=== PATIENT | male | born 1970 | race Two or more races ===

== ENCOUNTER 2018-10-01 15:21 | Inpatient (IN) | payer MEDICAID ==
[~2018-10-01] VITALS: Ht 170.2 cm; Wt 59.4 kg
[2018-10-01] MEDS ORDERED: METFORMIN HCL500 M1 ORAL (15:24)
--- NOTE | 2018-10-01 15:25 | NUR ---
ED Nurse Note: Patient brought in by AMY BULLARD 826 from [facility]/o right leg pain for 2 days. patient denies any recent injury, patient reports he has been walking a lot lately. Right leg appears to be swollen compared to left leg. patient's right foot appears red and swollen as well patient reports history of diabetes and takes metformin.
--- NOTE | 2018-10-01 16:20 | NUR ---
ED Nurse Note: blood sent to lab
[2018-10-01 16:36] LABS: BASOPHILS % (AUTO) 0.9 % (0.0-2.0); EOSINOPHILS % (AUTO) 2.8 % (0.0-3.0); HEMATOCRIT 26.3 % (42.0-52.0); HEMOGLOBIN 8.7 G/DL (14.2-18.0); LYMPHOCYTES % (AUTO) 11.8 % (20.0-45.0); MEAN CORPUSCULAR VOLUME 76 FL (80-99); MONOCYTES % (AUTO) 6.3 % (1.0-10.0); NEUTROPHILS % (AUTO) 78.2 % (45.0-75.0); PLATELET COUNT 328 K/UL (150-450); RED BLOOD COUNT 3.45 M/UL (4.70-6.10); RED CELL DISTRIBUTION WIDTH 12.7 % (11.6-14.8); WHITE BLOOD COUNT 11.7 K/UL (4.8-10.8)
[2018-10-01 16:48] LABS: ANION GAP 7 mmol/L (5-15); BLOOD UREA NITROGEN 25 mg/dL (7-18); CALCIUM 8.8 MG/DL (8.5-10.1); CARBON DIOXIDE 28 MMOL/L (21-32); CHLORIDE 100 MMOL/L (98-107); POTASSIUM 3.9 MMOL/L (3.5-5.1); SODIUM 135 MMOL/L (136-145)
--- NOTE | 2018-10-01 16:48 | NUR ---
ED Nurse Note: venous duplex done at bedside.
[2018-10-01 16:53] LABS: ALANINE AMINOTRANSFERASE 32 U/L (12-78); ALBUMIN 2.3 G/DL (3.4-5.0); ALBUMIN/GLOBULIN RATIO 0.5 (1.0-2.7); ALKALINE PHOSPHATASE 49 U/L (46-116); ASPARTATE AMINO TRANSFERASE 21 U/L (15-37); BILIRUBIN,TOTAL 0.2 MG/DL (0.2-1.0)
[2018-10-01] MEDS ORDERED: Piperacillin/Tazobactam 3.375 GM in NS 110 ML IVPB ONE (17:15)
--- NOTE | 2018-10-01 17:31 | NUR ---
ED Nurse Note: UA sent to lab
--- NOTE | 2018-10-01 17:55 | NUR ---
ED Nurse Note: crackers and water provided to the patient as Mikki SCHULTZ ok with it
[2018-10-01 17:59] VITALS: BP 130/65
[2018-10-01 18:46] LABS: APPEARANCE,URINE CLEAR; BILIRUBIN, URINE NEGATIVE (NEGATIVE); GLUCOSE, URINE (UA) 4+ (NEGATIVE); KETONES,URINE NEGATIVE (NEGATIVE); LEUKOCYTE ESTERASE ,URINE NEGATIVE (NEGATIVE); NITRITE,URINE NEGATIVE (NEGATIVE); PH,URINE 5 (4.5-8.0); PROTEIN,URINE 1+ (NEGATIVE); UROBILINOGEN,URINE NORMAL MG/DL (0.0-1.0)
[2018-10-01 18:47] LABS: COLOR,URINE YELLOW
--- NOTE | 2018-10-01 19:11 | NUR ---
HAND-OFF: Report given to Tigist Roberson RN.
--- NOTE | 2018-10-01 19:19 | Emergency Room Report ---
History of Present Illness General Chief Complaint: Lower Extremity Injury Source: EMS Present Illness HPI 47-year-old male presents to the emergency department complaining of 6 out of 10 in severity pain, swelling and tenderness to the right foot and leg times one day. Patient reports that he had an acute onset of his symptoms after doing a a lot of walking. Patient reports history of diabetes he states he has several open wounds. Patient states that he takes metformin daily. He denies fevers or chills he reports pain in the leg is exacerbated upon weight-bearing or palpation of the foot. Pt. denies recent prolonged travel or immobilization. Pt. reports he smokes methamphetamine. He Denies trauma or fall. Denies numbness tingling or loss of sensation or gross motor movements of the extremities, incontinence of bowel or bladder. Denies CP, Palpitations, LOC, AMS , dizziness, Changes in Vision, weakness or a sudden severe headache. Allergies: Coded Allergies: No Known Allergies (Unverified , 10/01/18) Patient History Past Medical History: see triage record Past Surgical History: none Pertinent Family History: none Reviewed Nursing Documentation: PMH: Agreed; PSxH: Agreed Nursing Documentation-PMH Past Medical History: No History, Except For Hx Diabetes: Yes Review of Systems All Other Systems: negative except mentioned in HPI Physical Exam Vital Signs Date Time Temp Pulse Resp B/P (MAP) Pulse Ox O2 Delivery O2 Flow Rate FiO2 10/01/18 15:17 106 18 100 Room Air 10/01/18 17:59 98.6 130/65 Sp02 EP Interpretation: reviewed, normal General Appearance: no apparent distress, alert, GCS 15, non-toxic, thin, other - Disheveled, Chronically Ill Head: normocephalic, atraumatic Eyes: bilateral eye normal inspection, bilateral eye PERRL ENT: normal ENT inspection, hearing grossly normal, normal voice Neck: full range of motion, no bony tend Respiratory: chest non-tender, lungs clear, normal breath sounds, no respiratory distress, no wheezing Cardiovascular #1: normal peripheral pulses, edema - right foot and leg Cardiovascular #2: 2+ dorsalis pedis (R), 2+ dorsalis pedis (L) Gastrointestinal: non tender, soft, non-distended Rectal: deferred Genitourinary: normal inspection Musculoskeletal: swelling - right calf, foot, and toes. greatest in the toes. , other - left great and second toe are surgically absent Neurologic: alert, oriented x3, responsive, motor strength/tone normal, sensory intact, speech normal, grossly normal Psychiatric: judgement/insight normal Skin: no rash, warm/dry, well hydrated, other - Swelling of the right calf, right foot and significantly to the right toes. Several open decubitus ulcers noted on the dorsal of the toes as well as on the plantar aspect of the right foot. Left great toe and second toe are surgically absent. There is also a large abrasion/ulceration wound that appears chronic to the left anterior escobar. Medical Decision Making PA Attestation Dr. long is my supervising Physician whom patient management has been discussed with. Diagnostic Impression: Primary Impression: Cellulitis in diabetic foot ER Course 47-year-old male presents to the emergency department complaining of 6 out of 10 in severity pain, swelling and tenderness to the right foot and leg times one day. Patient reports that he had an acute onset of his symptoms after doing a a lot of walking. Patient reports history of diabetes he states he has several open wounds. Patient states that he takes metformin daily. He denies fevers or chills he reports pain in the leg is exacerbated upon weight-bearing or palpation of the foot. Pt. denies recent prolonged travel or immobilization. Pt. reports he smokes methamphetamine. He Denies trauma or fall. Denies numbness tingling or loss of sensation or gross motor movements of the extremities, incontinence of bowel or bladder. Denies CP, Palpitations, LOC, AMS , dizziness, Changes in Vision, weakness or a sudden severe headache. Ddx considered but are not limited to Cellulitis, DVT, varicose vein, PAD, Venous insufficiency Vital signs: initially mildly tachycardic however remaining vital signs are WNL , pt. is afebrile H&PE are most consistent with cellulitis versus DVT of the right lower extremity- --this patient is homeless and appears disheveled ORDERS: CMP: glucose 166 CBC with Diff, : 11.5 wbc's ---hb 8.7, hct 26.3 (anemic) PT/PTT: unremarkable -Lactic Acid: 1.5 -LE duplex U/s to R/O dvt.---NEGATIVE FOR DVT ED INTERVENTIONS: -IV Zosyn - IV Vanco DISPOSITION: at this time pt. will be admitted to Dr. Kraft for Cellulitis in Diabetic homeless pt. Dr. Kraft agreed to admit the pt. and to continue pt. care management. Labs Test 10/01/18 16:10 10/01/18 17:28 White Blood Count 11.7 K/UL (4.8-10.8) Red Blood Count 3.45 M/UL (4.70-6.10) Hemoglobin 8.7 G/DL (14.2-18.0) Hematocrit 26.3 % (42.0-52.0) Mean Corpuscular Volume 76 FL (80-99) Mean Corpuscular Hemoglobin 25.2 PG (27.0-31.0) Mean Corpuscular Hemoglobin Concent 33.0 G/DL (32.0-36.0) Red Cell Distribution Width 12.7 % (11.6-14.8) Platelet Count 328 K/UL (150-450) Mean Platelet Volume 4.0 FL (6.5-10.1) Neutrophils (%) (Auto) 78.2 % (45.0-75.0) Lymphocytes (%) (Auto) 11.8 % (20.0-45.0) Monocytes (%) (Auto) 6.3 % (1.0-10.0) Eosinophils (%) (Auto) 2.8 % (0.0-3.0) Basophils (%) (Auto) 0.9 % (0.0-2.0) Prothrombin Time 10.4 SEC (9.30-11.50) Prothromb Time International Ratio 1.0 (0.9-1.1) Activated Partial Thromboplast Time 36 SEC (23-33) Sodium Level 135 MMOL/L (136-145) Potassium Level 3.9 MMOL/L (3.5-5.1) Chloride Level 100 MMOL/L (98-107) Carbon Dioxide Level 28 MMOL/L (21-32) Anion Gap 7 mmol/L (5-15) Blood Urea Nitrogen 25 mg/dL (7-18) Creatinine 1.0 MG/DL (0.55-1.30) Estimat Glomerular Filtration Rate > 60 mL/min (>60) Glucose Level 166 MG/DL (74-106) Lactic Acid Level 1.50 mmol/L (0.4-2.0) Calcium Level 8.8 MG/DL (8.5-10.1) Total Bilirubin 0.2 MG/DL (0.2-1.0) Aspartate Amino Transf (AST/SGOT) 21 U/L (15-37) Alanine Aminotransferase (ALT/SGPT) 32 U/L (12-78) Alkaline Phosphatase 49 U/L (46-116) Total Protein 7.2 G/DL (6.4-8.2) Albumin 2.3 G/DL (3.4-5.0) Globulin 4.9 g/dL Albumin/Globulin Ratio 0.5 (1.0-2.7) Urine Color Yellow Urine Appearance Clear Urine pH 5 (4.5-8.0) Urine Specific [place] 1.010 (1.005-1.035) Urine Protein 1+ (NEGATIVE) Urine Glucose (UA) 4+ (NEGATIVE) Urine Ketones Negative (NEGATIVE) Urine Blood Negative (NEGATIVE) Urine Nitrite Negative (NEGATIVE) Urine Bilirubin Negative (NEGATIVE) Urine Urobilinogen Normal MG/DL (0.0-1.0) Urine Leukocyte Esterase Negative (NEGATIVE) Urine RBC 0-2 /HPF (0 - 0) Urine WBC 2-4 /HPF (0 - 0) Urine Squamous Epithelial Cells None /LPF (NONE/OCC) Urine Bacteria None /HPF (NONE) CT/MRI/US Diagnostic Results CT/MRI/US Diagnostic Results : Imaging Test Ordered: Venous Duplex US Impression Negative for DVT. Multiple Lymph nodes noted. Last Vital Signs Date Time Temp Pulse Resp B/P (MAP) Pulse Ox O2 Delivery O2 Flow Rate FiO2 10/01/18 17:59 98.6 98 19 130/65 100 Room Air Status: unchanged Disposition: ADMITTED INPATIENT Condition: Serious Referrals: NON PHYSICIAN (PCP) Mikki Stern October 01, 2018 19:19
[2018-10-01] MEDS ORDERED: Vancomycin 1 GM in NS 275 ML IVPB ONE (19:45)
[2018-10-01 21:47] VITALS: BP 134/68
--- NOTE | 2018-10-01 22:10 | NUR ---
ER Nurse Note: Report given to Monisha, RN in [place] for continuity of care. Pt a&ox4, VSS, no signs of distress. All orders completed per ERMD orders. All safety measures met; all belongings taken with pt.
--- NOTE | 2018-10-01 22:15 | NUR ---
NURSE NOTES: RECEIVED REPORT FROM RODRI HEALY RN. PT WAS TRANSFERRED TO THE UNIT ON A GURNEY. AWAKE, AAOX4. NO ACUTE DISTRESS NOTED. REDNESS AND SWELLING NOTED ON RIGHT FOOT. IV ON LEFT AC 20G IS INTACT AND PATENT. RECEIVED ADMISSION ORDERS FROM . BED IS LOCKED AT THE LOWEST POSITION, BED ALARMS ACTIVE, SIDE RAILS UP X2, AND CALL LIGHT IS WITHIN REACH. WILL CONTINUE TO MONITOR.
[2018-10-01] MEDS: Hydromorphone 0.5mg/0.5ml inj IVP PRN (23:30)
[2018-10-02] VITALS: BP 122/57
[2018-10-02] MEDS: Piperacillin/Tazobactam 3.375 GM in NS 110 ML IVPB SCH ×4 (00:25→18:29)
[2018-10-02 04:00] VITALS: BP 122/55
[2018-10-02] MEDS: Vancomycin 500 MG in NS 110 ML IV SCH ×4 (05:23→21:06)
[2018-10-02] MEDS: NovoLOG Insulin Flexpen SUBQ SCH ×4 (06:09→20:56)
--- NOTE | 2018-10-02 07:35 | NUR ---
HAND-OFF: Report given to SCOOTER PRATT. Pt is in stable condition, sitter at bedside. No acute distress noted. Addendum: 10/02/18 at 0809 by Monisha Weller RN DISREGARD. INCORRECT PT.
--- NOTE | 2018-10-02 07:36 | NUR ---
NURSE NOTES: Report given to SCOOTER RYAN. Pt is in stable condition. No acute distress noted.
--- NOTE | 2018-10-02 07:59 | NUR ---
NURSE NOTES: Patient alert x4, on room air, no sing of distress and shortness of breath; IV Left AC Zosyn running; urinal within reach; bed at lowest position, side rails up x2, breaks engaged; call light within reach; will keep monitoring.
[2018-10-02 08:00] VITALS: BP 117/55
[2018-10-02] MEDS: metFORMIN 500mg tab ORAL SCH ×2 (08:31→18:28)
--- NOTE | 2018-10-02 08:37 | NUR ---
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
--- NOTE | 2018-10-02 08:59 | Diagnostic Imaging Report ---
Indication: Right lower extremity pain and swelling. Technique: Duplex Doppler imaging performed from the common femoral vein to the popliteal vein. FINDINGS: Normal compressibility demonstrated from the common femoral vein to the popliteal vein. Respiratory phasicity and good augmentation demonstrated on waveform analysis. There is no evidence of thrombosis. IMPRESSION: No evidence of deep venous thrombosis within the lower extremity.
--- NOTE | 2018-10-02 10:00 | History and Physical Report ---
DATE OF ADMISSION: 10/01/2018 HISTORY OF PRESENT ILLNESS: This is a 47-year-old male, who is a very poor historian. He came to the hospital with pain and swelling of his right foot. He reported that he is a long-standing diabetic, but does not take medications on a regular basis. He supposedly on metformin in the past. 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 The patient stated that the pain has been worse for the last few days. The patient reports consuming methamphetamine. ALLERGIES: None. PAST MEDICAL HISTORY: Diabetes mellitus. PREVIOUS SURGERIES: Left amputation of toes x2. FAMILY HISTORY: Noncontributory. SOCIAL HISTORY: Apparently homeless. PHYSICAL EXAMINATION: GENERAL: Reveals a 47-year-old male. HEENT: Unremarkable. LUNGS: Clear breath sounds bilaterally. ABDOMEN: Soft. EXTREMITIES: There is no edema. The patient has normal peripheral pulses. He has amputation of the left great and second toe. Right foot shows swelling and tenderness. There are several open decubitus on the dorsum of the toes as well as plantar aspect of the right foot. There is also an abrasion on the left . NEUROLOGIC: Nonfocal. LABORATORY DATA: The patient's lab testing shows white count 11,000, hemoglobin 8.7. Sodium 135, glucose 166. Urinalysis is negative. Coags are normal. Microbiology so far is negative. Imaging studies none. IMPRESSION: 1. Diabetic foot ulcer. 2. Homelessness. 3. Diabetes mellitus. DISCUSSION: Admitted to the hospital. At this time, I will continue metformin, initiate insulin sliding scale, IV fluids, IV vancomycin and Zosyn. We will consult Podiatry. We will follow carefully. Sidney Kraft M.D. DR: RAINER JOB#: [id number] CC:
[2018-10-02 12:00] VITALS: BP 112/55
--- NOTE | 2018-10-02 12:00 | NUR ---
NURSE NOTES: Vancomycin and Zosyn schedule for 1200; I called pharmacy and I was told to hung Zosyn first and Vancomycin to follow. Zosyn is running now.
--- NOTE | 2018-10-02 14:27 | NUR ---
*--* INSURANCE *-* CLINICALS AND REVIEWS HAVE BEEN FAXED TO: NAVA: NANCI P:[phone] *[id number] F: [phone] (FAX CLINICALS)
--- NOTE | 2018-10-02 14:40 | NUR ---
HOMELESS COORDINATOR spoke with patient and he is alert and oriented. Patient states he has a a contact number, ([phone]. Patient states he needs a wheelchair but was not at his bedside. Patient states he is chronically homeless and would like resources for shelters. Patient states he has been homeless for two years and has become homeless due to drug use. Patient has been using drugs for two years. Patient does not have a contact center consultant and states he does not want to bother anyone. Patient states he receives $800 in SSI a month. Patient states he uses meth and is trying to get clean and would like some resources for substance abuse. Patient also states he is hearing voices but does not talk any medication for it. Patient states he would like resources for mental health. Patient states he will be returning to his previous living condition and would like bus tokens upon discharge. Patient has weather appropriate clothing. Patient continues to require medical intervention. Will continue to monitor and assist as needed. Addendum: 10/02/18 at 1610 by SHERRON DALLAS CM HC Scheduled a follow up appointment at [facility], Sunday October 14, 2018 @ 1:00pm. [address] [place] [address]
--- NOTE | 2018-10-02 15:14 | NUR ---
Social Service Note SW met with patient to assess for homelessness. Patient is alert, oriented, verbally responsive in Polish (decline Italian translation). Patient has been homeless for several years. Patient contributes his homelessness to his frequent drug use and not following through with scheduled appointment. Patient states he smokes meth a few times a week. He last smoked 3 days ago. Patient states he is not receptive to drug treatment as he has been on multiple wait list for serves. Patient states due to his lack of insurance ([facility]) and financial support ([employer]) he is subject to limited availability. SW discussed community access centers such as [address] [place] [address],[phone] and [facility] Substance Abuse Hotline [phone]. Patient was receptive to resources however states he probably will not follow through. SW left a message for insurance [facility] [phone] to discussed available covered benefits. Patient states he has utilized shelters but primarily states in the park located around [facility]. Patient currently indicating that this is the location he will return to upon discharge. Patient states he was diagnosed with schizophrenia. Patient currently not receiving mental health support. Patient denies SI/HI and denies audio/visual hallucinations. Mental health resources to be provided. Patient's medical provider is [address] [place] [address], . ELOY discussed with homeless coordinator. Will continue to monitor. Addendum: 10/02/18 at 1608 by MARY LIPSCOMB Recommend PT eval. Emergency contact Narayan Muir [phone].
--- NOTE | 2018-10-02 19:32 | NUR ---
HAND-OFF: Report given to SCOOTER Weller. I endorsed SCOOTER Weller that Homeless patient discharge planning checklist, which is on patint's file.
--- NOTE | 2018-10-02 19:35 | NUR ---
NURSE NOTES: RECEIVED PT FROM SCOOTER RYAN. RECEIVED REPORT ABOUT HOMELESS DC CHECKLIST. PT WAS AWAKE, AGITATED, THREW TABLE AND FOOD ON THE FLOOR, AND USED INAPPROPRIATE LANGUAGE. SECURITY SUCCESSFULLY DEESCALATED THE SITUATION. PT IS AAOX4, ON ROOM AIR, UNLABORED BREATHING, DENIES PAIN AT THE MOMENT. L AC 20G IV IS INTACT AND PATENT. SWELLING NOTED ON THE RIGHT FOOT, OPEN TO AIR. BED IS LOCKED AT THE LOWEST POSITION, BED ALARMS ACTIVE, SIDE RAILS UP X2 AND CALL LIGHT IS WITHIN REACH. WILL CONTINUE TO MONITOR.
--- NOTE | 2018-10-02 20:52 | NUR ---
NURSE NOTES: PT APPEARED VERY AGITATED. REFUSED TO BE TOUCH. REFUSED VITAL SIGNS, ACCUCHECK, AND NOVOLOG. USED INAPPROPRIATE LANGUAGE TOWARDS RN AND CLIENT MANAGER LARGE LAW. PT STATES THAT HE WANTS TO BE LEAVE ALONE. WILL CONTINUE TO MONITOR.
--- NOTE | 2018-10-02 22:00 | NUR ---
NURSE NOTES: PATIENT CONTINUES TO BEND HIS LEFT ARM, OBSTRUCTING THE IV IN THE AC, PREVENTING MEDICATION ADMINISTRATION. EDUCATED PT ABOUT KEEPING HIS ARM STRAIGHT, BUT PT IS NONCOMPLIANCE. OFFERED TO START A NEW IV IN A DIFFERENT LOCATION BUT PT REFUSED. WILL CONTINUE TO MONITOR.
--- NOTE | 2018-10-03 | NUR ---
NURSE NOTES: PT REFUSED MIDNIGHT VITALS, CHARGE NURSE MADE AWARE. WILL CONTINUE TO MONITOR.
[2018-10-03] MEDS: Vancomycin 500 MG in NS 110 ML IV SCH ×3 (00:10→12:28)
[2018-10-03] MEDS: Piperacillin/Tazobactam 3.375 GM in NS 110 ML IVPB SCH ×6 (01:32→21:17)
[2018-10-03] MEDS: NovoLOG Insulin Flexpen SUBQ SCH ×4 (06:18→21:38)
--- NOTE | 2018-10-03 07:54 | NUR ---
NURSE NOTES: received report from Monisha,RN. patient in bed. alert. verbally responsive. no respiratory distress noted. c/o discomfort on rt foot. offered pain medication but refused. IV on LAC running ATB. cooperative procedure at this time. bed in the lowest position . call light within reach. alarm on . will continue to monitor.
--- NOTE | 2018-10-03 07:56 | NUR ---
HAND-OFF: Report given to SCOOTER BASS.
[2018-10-03 08:00] VITALS: BP 124/64
[2018-10-03] MEDS: metFORMIN 500mg tab ORAL SCH ×2 (08:28→17:12)
--- NOTE | 2018-10-03 10:10 | NUR ---
P.T NOTE: P.T EVALUATION COMPLETED. PATIENT IS INDEPENDENT WITH BED MOBILITY , TRANSFERS AND GAIT DESPITE ANTALGIA DUE TO PAIN ON THE FOOT: PATIENT INSTRUCTED ON PROPER AND SAFE USE OF CANE TO MINIMIZE ANTALGIA AND FACILITATE GAIT STABILITY: PATIENT RETURNED GOOD DEMONSTRATION. NO FURTHER P.T FOLLOW UP NEEDED AT THIS TIME. D/C P.T SERVICES. THANK YOU FOR THIS REFERRAL. Addendum: 10/03/18 at 1011 by CHERYL BERRY PT Amended: Links added.
--- NOTE | 2018-10-03 10:42 | Pulmonology Progress Note ---
Assessment/Plan Assessment/Plan IMPRESSION: 1. Diabetic foot ulcer. 2. Homelessness. 3. Diabetes mellitus. DISCUSSION: Continue metformin, initiate insulin sliding scale, IV fluids, IV vancomycin and Zosyn. I will consult Podiatry. I will follow carefully. Subjective Interval Events: none new Constitutional: Reports: no symptoms HEENT: Repors: no symptoms Respiratory: Reports: no symptoms Gastrointestinal/Abdominal: Reports: no symptoms Allergies: Coded Allergies: No Known Allergies (Unverified , 10/01/18) Objective Last 24 Hour Vital Signs Date Time Temp Pulse Resp B/P (MAP) Pulse Ox O2 Delivery O2 Flow Rate FiO2 10/03/18 08:00 98.6 18 124/64 (84) 98 10/02/18 12:00 97.0 76 16 112/55 (74) 98 Intake and Output 10/02/18 10/03/18 19:00 07:00 Intake Total 1334.0 ml 258.0 ml Balance 1334.0 ml 258.0 ml Intake Oral 1040 ml IV Total 294.0 ml 258.0 ml # Voids 3 General Appearance: no acute distress HEENT: normocephalic Respiratory/Chest: chest wall non-tender Cardiovascular: normal peripheral pulses, normal rate Abdomen: normal bowel sounds Microbiology Date/Time Source Procedure Growth Status 10/01/18 21:58 Rectum Received Laboratory Tests 10/03/18 02:50: Vancomycin Level Trough 14.1H Current Medications Medications (Trade) Dose Ordered Sig/Alissa Route PRN Reason Start Time Stop Time Status Last Admin Dose Admin Dextrose (Dextrose 50%) 25 ml Q30M PRN IV Hypoglycemia 10/01/18 22:45 10/31/18 22:44 Dextrose (Dextrose 50%) 50 ml Q30M PRN IV Hypoglycemia 10/01/18 22:45 10/31/18 22:44 Hydromorphone HCl (Dilaudid) 0.5 mg Q4H PRN IVP For Pain 10/01/18 23:15 10/08/18 23:14 10/01/18 23:30 Insulin Aspart (NovoLOG) BEFORE MEALS AND HS SUBQ 10/02/18 06:30 11/01/18 06:29 10/02/18 16:48 Metformin HCl (Glucophage) 500 mg TWICE A DAY ORAL 10/02/18 09:00 11/01/18 08:59 10/02/18 18:28 Piperacillin Sod/ Tazobactam Sod 3.375 gm/Sodium Chloride 110 ml @ 27.5 mls/hr Q6HR IVPB 10/02/18 00:00 10/06/18 23:59 10/03/18 01:32 Vancomycin HCl (Vanco rx to dose) 1 ea DAILY PRN MISC Per rx protocol 10/01/18 22:45 10/31/18 22:44 Vancomycin HCl 500 mg/Sodium Chloride 110 ml @ 74 mls/hr Q8H IV 10/03/18 08:00 10/08/18 07:59 10/03/18 08:26 Sidney Kraft MD October 03, 2018 10:42
[2018-10-03 12:00] VITALS: BP 124/69
--- NOTE | 2018-10-03 12:33 | NUR ---
NURSE NOTES: left for MRI on Rt foot. IV on LAC intact. patient stable.
--- NOTE | 2018-10-03 12:37 | NUR ---
ADVERTISING DIRECTORRAIL SWITCHMAN SI:CELLULITIS VS: BP 112/55, P 76, T 97.0, RR 16, SpO2 98 NO LABS DRAWN TODAY IS:NOVOLOG SUBQ VANCOMYCIN 110ml IV ZOSYN 110ml IVPB METFORMIN 500mg MED/SURG STATUS
--- NOTE | 2018-10-03 13:51 | Diagnostic Imaging Report ---
Indication: Cellulitis ulceration osteomyelitis Technique: Right forefoot imaging utilizing multiplanar T1 fast spin-echo, proton and T2 fast spin-echo with fat saturation, and STIR. Comparison: None Findings: There is no plain film correlation. Extensive abnormal bone marrow signal characterized by low T1 and high T2 signal within the head of the third metatarsal, proximal middle and distal phalange consistent with acute osteomyelitis. Adjacent skin ulceration along the dorsum of the toe noted with extensive subcutaneous edema indicative of cellulitis. There is a joint effusion at the third MTP joint likely infected. There is extensive amount of fluid surrounding the third proximal phalange involving both the second and third interspace likely periosteal or adjacent abscess. The adjacent second and the adjacent fourth proximal phalanges as well as the remainder of the osseous structures exhibit normal signal. There is some mild T2 hyperintense signal involving the metatarsal tarsal joints which may be degenerative in nature. IMPRESSION: Acute osteomyelitis involving the head of the third metatarsal and phalanges. Moderate somewhat encapsulated appearing fluid surrounding the third proximal phalange consistent adjacent abscess. Cellulitis and ulceration noted as described above.
[2018-10-03] MEDS: Hydromorphone 0.5mg/0.5ml inj IVP PRN ×2 (13:57→23:41)
--- NOTE | 2018-10-03 14:04 | NUR ---
*--* INSURANCE *-* UPDATED CLINICALS AND REVIEWS HAVE BEEN FAXED TO: NAVA: NANCI P:[phone] *[id number] F: [phone] (FAX CLINICALS)
--- NOTE | 2018-10-03 14:50 | NUR ---
NURSE NOTES: notified dr. syed patton/podiatry regarding MRI on rt foot result. MD will schedule for amputation surgery tomorrow. Dr. Syed yoder inform the surgery to the patient. informed consent and further order will be f/u. NPO midnight for surgery. got a clearance from for the surgery.
[2018-10-03 16:00] VITALS: BP 121/66
[2018-10-03] MEDS ORDERED: Vancomycin 750mg/NS 275ml IVPB SCH ×2 (17:00)
[2018-10-03] MEDS ORDERED: NS IVPB SCH (17:00)
[2018-10-03] MEDS ORDERED: VANCOMYCIN IVPB SCH (17:00)
--- NOTE | 2018-10-03 19:13 | NUR ---
HAND-OFF: Report given to SCOOTER Herrera.
--- NOTE | 2018-10-03 19:48 | NUR ---
NURSE NOTES: Received patient in bed, awake, alert, oriented, no acute distress noted, VSS, afebrile. Call light is within reach, bed is in low position, locked and alarm is on. Will continue to assess for comfort and safety.
--- NOTE | 2018-10-03 22:15 | Consultation ---
DATE OF CONSULTATION: 10/03/2018 CONSULTING PHYSICIAN: Sidney Kraft M.D. REASON FOR CONSULTATION: Diabetic foot ulcer, right foot. HISTORY OF PRESENT ILLNESS: This is a 47-year-old diabetic patient, who has presented to [facility] with diabetic foot infection to the right foot. The patient states that he actually has history of amputation to the left foot and noticed a swelling involving the right third toe. The patient states that the swelling and infection started a few months ago and it started getting worse to the point that he decided to come to the hospital for evaluation and treatment. The patient denies taking care of it. He is a poor historian and he demonstrates to be noncompliant. The patient denies fever, chills, nausea, or vomiting. White count is slightly elevated to 11,000. PAST MEDICAL HISTORY: Diabetic neuropathy, amputation of left toes, diabetic foot infection, and cellulitis of the right foot. PHYSICAL EXAMINATION: VASCULAR: Dorsalis pedis and posterior tibial artery are palpable. Capillary filling time is noted to be 3 seconds. Edema is noted to the left foot dorsal aspect. NEUROLOGICAL: Sharp and dull proprioception, protected threshold, and vibratory sensation noted to be diminished consistent with peripheral neuropathy. MUSCULOSKELETAL: The patient is mobile. There is status post amputation stump left first and second toes noted to be healed. No drainage, discharge, or opening noted. Contracted digits 3 through 5 of the left foot, 2 through 5 of the right foot at the PIPJ consistent with hammertoe deformity. Muscle strength is noted to be 5/5 in all 4 quadrants. No decrease in range of motion is noted. DERMATOLOGICAL: Attention was directed to the right fifth toe were enlarged swollen third toe noted consistent with clinical osteo. There is dorsal ulceration with medial and lateral ulceration to the right third toe with drainage and discharge. Foul smell is present. There is positive cellulitis proximal to the metatarsophalangeal joint. The adjacent second and fourth toes are also noted to be swollen, not as large as the third toe. superficial ulceration is noted sub R 2nd met head. no probing or undermining noted. to subq level. ASSESSMENT AND PLAN: Diabetic foot infection with clinical osteo of the right third toe. Order was written for application of Betadine to the right fifth toe. MRI is pending to examine the excessive amount of osteomyelitis present. The patient would benefit from amputation of the right fifth toe pending MRI results. The patient will be followed. Anam Berry D.P.M DR: CIRILO JOB#: [id number] CC: OXANA
[2018-10-04] VITALS (10 sets, daily range): BP systolic 99–137; BP diastolic 57–79
[2018-10-04] MEDS ORDERED: Piperacillin/Tazobactam 3.375 GM in NS 110 ML IVPB SCH (03:00)
[2018-10-04] MEDS: NovoLOG Insulin Flexpen SUBQ SCH ×4 (06:23→21:13)
--- NOTE | 2018-10-04 06:53 | NUR ---
HAND-OFF: Report given to Vanessa HELMS. Addendum: 10/04/18 at 0714 by YEFRI MCCULLOUGH RN Report is given to Yulissa HELMS
--- NOTE | 2018-10-04 07:32 | NUR ---
NURSE NOTES: received report from SCOOTER Herrera.patient in bed. alert. verbally responsive. no respiratory distress noted. no c/o pain at this time. IV on LAC 20 running ATB. bed in the lowest position. call light within reach. will continue to monitor.
[2018-10-04 07:33] LABS: BASOPHILS % (AUTO) 1.4 % (0.0-2.0); EOSINOPHILS % (AUTO) 7.9 % (0.0-3.0); HEMATOCRIT 26.4 % (42.0-52.0); HEMOGLOBIN 8.5 G/DL (14.2-18.0); LYMPHOCYTES % (AUTO) 18.3 % (20.0-45.0); MEAN CORPUSCULAR VOLUME 78 FL (80-99); MONOCYTES % (AUTO) 6.6 % (1.0-10.0); NEUTROPHILS % (AUTO) 65.9 % (45.0-75.0); PLATELET COUNT 365 K/UL (150-450); RED BLOOD COUNT 3.39 M/UL (4.70-6.10); RED CELL DISTRIBUTION WIDTH 13.7 % (11.6-14.8); WHITE BLOOD COUNT 6.5 K/UL (4.8-10.8)
[2018-10-04 08:07] LABS: ANION GAP 6 mmol/L (5-15); BLOOD UREA NITROGEN 17 mg/dL (7-18); CALCIUM 8.6 MG/DL (8.5-10.1); CARBON DIOXIDE 29 MMOL/L (21-32); CHLORIDE 101 MMOL/L (98-107); CREATININE 0.9 MG/DL (0.55-1.30); POTASSIUM 4.4 MMOL/L (3.5-5.1); SODIUM 136 MMOL/L (136-145)
--- NOTE | 2018-10-04 08:10 | Pulmonology Progress Note ---
Assessment/Plan Assessment/Plan IMPRESSION: 1. Diabetic foot ulcer with osteo 2. Homelessness. 3. Diabetes mellitus. DISCUSSION: Continue metformin, insulin sliding scale, IV fluids, IV vancomycin and Zosyn. Seen by Podiatry. I will follow carefully. Will need toe amputation Subjective Interval Events: None new; seen by podiary Constitutional: Reports: no symptoms HEENT: Repors: no symptoms Respiratory: Reports: no symptoms Cardiovascular: Reports: no symptoms Gastrointestinal/Abdominal: Reports: no symptoms Genitourinary: Reports: no symptoms Allergies: Coded Allergies: No Known Allergies (Unverified , 10/01/18) Objective Last 24 Hour Vital Signs Date Time Temp Pulse Resp B/P (MAP) Pulse Ox O2 Delivery O2 Flow Rate FiO2 10/04/18 04:00 97.4 68 18 107/66 (80) 10/04/18 00:15 101.0 10/04/18 00:00 101.2 83 19 127/61 (83) 10/03/18 16:00 98.2 81 18 121/66 (84) 97 10/03/18 12:00 98.0 75 18 124/69 (87) 97 Intake and Output 10/03/18 10/04/18 18:59 06:59 Intake Total 921.333 ml Output Total 1000 ml 600 ml Balance -78.667 ml -600 ml Intake Oral 480 ml IV Total 441.333 ml Output Urine Total 1000 ml 600 ml General Appearance: no acute distress HEENT: normocephalic Respiratory/Chest: chest wall non-tender, lungs clear Cardiovascular: normal peripheral pulses, normal rate Abdomen: normal bowel sounds Microbiology Date/Time Source Procedure Growth Status 10/01/18 21:58 Rectum - Final NO CARBAPENEM-RESISTANT ENTEROBACTERI... Complete 10/01/18 21:58 Rectum VRE Culture - Final NO VANCOMYCIN RESISTANT ENTEROCOCCUS ... Complete Laboratory Tests 10/04/18 05:51: White Blood Count 6.5, Red Blood Count 3.39L, Hemoglobin 8.5L, Hematocrit 26.4L , Mean Corpuscular Volume 78L, Mean Corpuscular Hemoglobin 25.0L, Mean Corpuscular Hemoglobin Concent 32.0, Red Cell Distribution Width 13.7, Platelet Count 365, Mean Platelet Volume 4.2L, Neutrophils (%) (Auto) 65.9, Lymphocytes ( %) (Auto) 18.3L, Monocytes (%) (Auto) 6.6, Eosinophils (%) (Auto) 7.9H, Basophils (%) (Auto) 1.4, Sodium Level [Pending], Potassium Level [Pending], Chloride Level [Pending], Carbon Dioxide Level [Pending], Blood Urea Nitrogen [ Pending], Creatinine [Pending], Estimat Glomerular Filtration Rate [Pending], Glucose Level [Pending], Calcium Level [Pending] Current Medications Medications (Trade) Dose Ordered Sig/Alissa Route PRN Reason Start Time Stop Time Status Last Admin Dose Admin Acetaminophen (Tylenol) 650 mg Q6H PRN ORAL Mild Pain/Temp > 100.5 10/03/18 23:45 11/02/18 23:44 10/03/18 23:44 Dextrose (Dextrose 50%) 25 ml Q30M PRN IV Hypoglycemia 10/01/18 22:45 10/31/18 22:44 Dextrose (Dextrose 50%) 50 ml Q30M PRN IV Hypoglycemia 10/01/18 22:45 10/31/18 22:44 Hydromorphone HCl (Dilaudid) 0.5 mg Q4H PRN IVP For Pain 10/01/18 23:15 10/08/18 23:14 10/03/18 23:41 Insulin Aspart (NovoLOG) BEFORE MEALS AND HS SUBQ 10/02/18 06:30 11/01/18 06:29 10/04/18 06:23 Metformin HCl (Glucophage) 500 mg TWICE A DAY ORAL 10/02/18 09:00 11/01/18 08:59 10/03/18 17:12 Piperacillin Sod/ Tazobactam Sod 3.375 gm/Sodium Chloride 110 ml @ 27.5 mls/hr Q6H IVPB 10/04/18 03:00 10/11/18 02:59 10/04/18 03:27 Vancomycin HCl (Vanco rx to dose) 1 ea DAILY PRN MISC Per rx protocol 10/01/18 22:45 10/31/18 22:44 Vancomycin HCl 750 mg/Sodium Chloride 275 ml @ 183.333 mls/hr Q12H IVPB 10/04/18 07:00 10/09/18 06:59 Sidney Kraft MD October 04, 2018 08:10
--- NOTE | 2018-10-04 08:10 | NUR ---
NURSE NOTES: Dr. Wyatt called to the patient,explained the surgery and procedures. patient verbalized understood and agree to sign on the consent. patient is NPO since last midnight.
--- NOTE | 2018-10-04 08:17 | NUR ---
NURSE NOTES: patient has been NPO since midnight for surgery. diabetic patient. called Dr. gann and received order of NS 1000 75/hr for hydration. order noted and carried out.
--- NOTE | 2018-10-04 08:30 | NUR ---
NURSE NOTES: witnessed patient signed on consent for surgery.
[2018-10-04] MEDS: metFORMIN 500mg tab ORAL SCH ×2 (09:00→18:41)
[2018-10-04] MEDS: Vancomycin 750mg/NS 275ml IVPB SCH ×4 (09:26→21:05)
--- NOTE | 2018-10-04 11:00 | NUR ---
NURSE NOTES: patient got mad about NPO. pulled out IV. threw things away. screamed and verbally abused to staffs. called security for safety. explained the patient the benefits of surgery. patient agreed to stay and get surgery as ordered. insert new IV on LFA 22g. intact. will continue to monitor.
--- NOTE | 2018-10-04 11:01 | NUR ---
*--* INSURANCE *-* UPDATED CLINICALS AND REVIEWS HAVE BEEN FAXED TO: NAVA: NANCI P:[phone] *[phone] F: [phone] (FAX CLINICALS)
[2018-10-04] MEDS ORDERED: Midazolam 2mg/2ml Inj ONE (11:35)
[2018-10-04] MEDS ORDERED: fentaNYL 100 mcg/2 mL IV ONE ×2 (11:35→14:27)
[2018-10-04] MEDS ORDERED: Propofol 200mg/20ml IV ONE (11:35)
--- NOTE | 2018-10-04 11:46 | Anethesia Preoperative Eval ---
Anesthesia Pre-op PMH/ROS General Date of Evaluation: October 04, 2018 Time of Evaluation: 11:45 Anesthesiologist: Mayte Thomason CRNA ASA Score: ASA 3 Mallampati Score Class I : Soft palate, uvula, fauces, pillars visible Class II: Soft palate, uvula, fauces visible Class III: Soft palate, base of uvula visible Class IV: Only hard plate visible Mallampati Classification: Class II Surgeon: Kristi Diagnosis: Cellulitis, RIGHT foot ulcer Surgical Procedure: RIGHT toe amputation Anesthesia History: none Social History: smoking, drug use - methamphetamines Family History: no anesthesia problems Allergies: Coded Allergies: No Known Allergies (Unverified , 10/01/18) Medications: see eMAR Patient NPO?: Yes NPO Date: October 04, 2018 NPO Time: 00:00 Past Medical History Cardiovascular: Denies: HTN, CAD, PA, valve dz, arrhythmia, other Pulmonary: Denies: asthma, COPD, MECHE, other Gastrointestinal/Genitourinary: Denies: GERD, CRI, ESRD, other Neurologic/Psychiatric: Denies: dementia, CVA, depression/anxiety, TIA, other Endocrine: Reports: DM - Type 2, noncompliant; Denies: hypothyroidism, steroids, other HEENT: Denies: cataract (L), cataract (R), glaucoma, [place] (L), [place] (R), other Hematology/Immune: Reports: anemia; Denies: DVT, bleeding disorder, other Musculoskeletal/Integumentary: Reports: other - RIGHT foot decubitus ulcer, cellulitis, 3rd toe osteomyelitis; Denies: OA, RA, DJD, DDD, edema Other: other - homeless PMH Narrative: as noted above PSxH Narrative: LEFT toe amputation x 2 Anesthesia Pre-op Phys. Exam Physician Exam Last Vital Signs Date Time Temp Pulse Resp B/P (MAP) Pulse Ox O2 Delivery O2 Flow Rate FiO2 10/04/18 08:00 98.0 76 18 137/71 (93) 97 10/02/18 09:59 Room Air Constitutional: NAD Neurologic: other - alert and oriented Cardiovascular: RRR Respiratory: CTA Gastrointestinal: S/NT/ND Airway Exam Mallampati Score: Class II MO: full Neck: FROM TMD: > 3 FB ROM: full Teeth: broken Dentures: no upper, no lower Anesthesia Pre-op A/P Labs Hematology Test 10/04/18 05:51 White Blood Count 6.5 K/UL (4.8-10.8) Red Blood Count 3.39 M/UL (4.70-6.10) L Hemoglobin 8.5 G/DL (14.2-18.0) L Hematocrit 26.4 % (42.0-52.0) L Mean Corpuscular Volume 78 FL (80-99) L Mean Corpuscular Hemoglobin 25.0 PG (27.0-31.0) L Mean Corpuscular Hemoglobin Concent 32.0 G/DL (32.0-36.0) Red Cell Distribution Width 13.7 % (11.6-14.8) Platelet Count 365 K/UL (150-450) Mean Platelet Volume 4.2 FL (6.5-10.1) L Neutrophils (%) (Auto) 65.9 % (45.0-75.0) Lymphocytes (%) (Auto) 18.3 % (20.0-45.0) L Monocytes (%) (Auto) 6.6 % (1.0-10.0) Eosinophils (%) (Auto) 7.9 % (0.0-3.0) H Basophils (%) (Auto) 1.4 % (0.0-2.0) Chemistry Test 10/04/18 05:51 Sodium Level 136 MMOL/L (136-145) Potassium Level 4.4 MMOL/L (3.5-5.1) Chloride Level 101 MMOL/L (98-107) Carbon Dioxide Level 29 MMOL/L (21-32) Anion Gap 6 mmol/L (5-15) Blood Urea Nitrogen 17 mg/dL (7-18) Creatinine 0.9 MG/DL (0.55-1.30) Estimat Glomerular Filtration Rate > 60 mL/min (>60) Glucose Level 118 MG/DL (74-106) H Calcium Level 8.6 MG/DL (8.5-10.1) Accucheck 127 @ 11:30 Studies Pre-op Studies: other - MRI of RIGHT foot, (+) 3rd toes osteomyelitis Risk Assessment & Plan Assessment: ASA 2, ok to proceed Plan: MAC Status Change Before Surgery: No Pre-Antibiotics Drug: On antibiotics on floor Mayte Thomason CRNA October 04, 2018 11:46
--- NOTE | 2018-10-04 11:58 | NUR ---
RD ASSESSMENT & RECOMMENDATIONS SEE CARE ACTIVITY FOR COMPLETE ASSESSMENT DAILY ESTIMATED NEEDS: Needs based on Wounds, DM 68.7kg 25-35 kcals/kg 5415-1710 total kcals 1.25-1.5 g protein/kg 86-103 g total protein 25-30 mL/kg 8178-8573 total fluid mLs NUTRITION DIAGNOSIS: Increased pro needs R/t wound healing as evidenced by pt w/ R toe ulcer and OM, pending toe amputation. CURRENT DIET: NPO for procedure, was CCHO LOW PO DIET RECOMMENDATIONS: CCHO LOW + HIGH PROT SNACKS IN B/W MEALS ADDITIONAL RECOMMENDATIONS: 1) Obtain a calibrated bed scale wt 2) Wound care: add FLORINA BID + MVI x1 + VIT C 250mg BID 3) High pro snacks in b/w meals (1 carb each)
--- NOTE | 2018-10-04 12:45 | NUR ---
NURSE NOTES: patient left unit for surgery at 1330 with stable condition. IV intact. consent signed. pre op check list done.
[2018-10-04] MEDS ORDERED: NeoSporin Gu Irrig 1ml Amp IRRIG ONE (13:31)
[2018-10-04] MEDS ORDERED: Bacitracin 50000 Units Vial ONE (13:31)
[2018-10-04] MEDS ORDERED: Bacitracin Oint 15gm Tube TOPIC ONE (13:31)
[2018-10-04] MEDS ORDERED: Bupivacaine 0.5% Inj 30 ml vial INJ ONE (13:43)
[2018-10-04] MEDS ORDERED: Lidocaine 1% Plain 30 ml INJ ONE (13:43)
[2018-10-04] MEDS ORDERED: LORazepam Inj 2mg/ml 1ml IV PRN (13:45)
[2018-10-04] MEDS ORDERED: Hydromorphone 0.5mg/0.5ml inj IVP PRN (13:45)
--- NOTE | 2018-10-04 13:57 | Pre-Procedure Note/Attestation ---
Pre-Procedure Note/Attestation Complete Prior to Procedure Planned Procedure: right Indications for Procedure Pre-Operative Diagnosis: Dm foot Ulcer R 3rd toe with underlying Osteomyelitis of R 3rd toe and distal 3rd Metatarsal Attestation I attest that I discussed the nature of the procedure; its benefits; risks and complications; and alternatives (and the risks and benefits of such alternatives ), prior to the procedure, with the patient (or the patient's legal disability representative). I attest that, if there was a reasonable possibility of needing a blood transfusion, the patient (or the patient's legal disability representative) was given the [facility] standardized written summary, pursuant to the Sean Ciara Blood Safety Act ([place] Health and Safety Code # 1645, as amended). I attest that I re-evaluated the patient just prior to the surgery and that there has been no change in the patient's H&P, except as documented below: Anam Berry DPM October 04, 2018 13:57
[2018-10-04] MEDS ORDERED: NS Irrig 1000ml ONE (14:00)
[2018-10-04] MEDS ORDERED: Lidocaine 1% MPF 10mg/ml 5ml ONE (14:00)
[2018-10-04] MEDS ORDERED: Sterile Water Irrig 1000ml IRRIG ONE (14:00)
--- NOTE | 2018-10-04 15:10 | Post Operative Note (Narrative ---
Progress Note Post-Op Note R 3trd toe Dm infection with underlying osteomyelitises of the toe and 3rd metatarsal head. Patient tolerated the anesthesia and procedure well patient was transferred to recovery with VSS intact. Patient will be taken back to floor once stable and resume all preop orders. dressing to remain dry and intact Anam Berry DPM October 04, 2018 15:10
--- NOTE | 2018-10-04 15:10 | Immediate Post-Op Evaluation ---
Immediate Post-Op Evalulation Immediate Post-Op Evalulation Procedure: RIGHT 3rd toe amputation Date of Evaluation: October 04, 2018 Time of Evaluation: 15:04 IV Fluids: 0.9 NS 300 ml Estimated Blood Loss: minimal Blood Pressure Systolic: 99 Blood Pressure Diastolic: 59 Pulse Rate: 66 Respiratory Rate: 16 O2 Sat by Pulse Oximetry: 100 Temperature (Fahrenheit): 98.1 Pain Score (1-10): 0 Nausea: No Vomiting: No Complications none Patient Status: awake, reacts, patent Hydration Status: adequate Drug: on antibiotics on floor, see Mayte Sharp CRNA October 04, 2018 15:10
--- NOTE | 2018-10-04 16:26 | NUR ---
NURSE NOTES: patient was transferred from OR via hospital bed with stable condition. alert. verbally responsive. no respiratory distress noted. Rt toe amputated with dressing intact. shoe in place. elevated rt leg with pillow. IV on LFA running fluid. will continue to monitor patient condition.
[2018-10-04] MEDS: Zoysn 3.37gm in NS 100ML IVPB SCH (16:34)
--- NOTE | 2018-10-04 16:34 | NUR ---
HOMELESS COORDINATOR Homeless Checklist available if required. Please check patients chart. Please provide medical resource list for patient follow-up appointment in chart. Homeless Checklist and Medical resource list are both available in yellow homeless binder as well. Patient continues to require medical intervention. Will continue to monitor and assist as needed.
--- NOTE | 2018-10-04 17:20 | NUR ---
RESERVATION AGENTMANAGER INTEGRATED SI: CELLULITIS VS: BP 101/57, P 64, T 97.6, RR 16, SpO2 100 RBC 3.39, H&H 8.5/26.4, IS: NS x1L IV VANCOMYCIN 110ml IV ZOSYN 110ml IVPB MED/SURG STATUS
--- NOTE | 2018-10-04 19:14 | NUR ---
HAND-OFF: Report given to SCOOTER Evans.
--- NOTE | 2018-10-04 19:47 | NUR ---
NURSE NOTES: Pt received in bed at lowest position, able to make needs known, call light within reach, asking for a sandwhich, foot is wrapped up with shoe on it, no c/o pain or signs of distress at the moment, will continue to monitor.
[2018-10-05] MEDS: Zoysn 3.37gm in NS 100ML IVPB SCH ×3 (00:37→18:03)
--- NOTE | 2018-10-05 05:00 | Operative Note - Dictated ---
DATE OF OPERATION: 10/04/2018 PREOPERATIVE DIAGNOSES: 1. Diabetic foot ulcer, right third toe with osteomyelitis. 2. Cellulitis. 3. Osteomyelitis of third metatarsal head. POSTOPERATIVE DIAGNOSES: 1. Diabetic foot ulcer, right third toe with osteomyelitis. 2. Cellulitis. 3. Osteomyelitis of third metatarsal head. NAME OF OPERATION: Amputation of right third toe with a biopsy of third metatarsal head. SURGEON: Anam Berry D.P.M. ANESTHESIA: Local with MAC. HEMOSTASIS: Pneumatic ankle tourniquet. ESTIMATED BLOOD LOSS: Minimal. PATHOLOGY: Right third toe was enlarged, swollen. Proximal phalanx and distal phalanx noted to be degenerative. Upon entrance of the metatarsophalangeal joint, 10 mL of purulent matter was noted consistent with septic joint. Degenerative changes was noted to the metatarsal head. PROCEDURE IN DETAIL: Under mild sedation, the patient was brought into the operating room table and placed on the operating room table in the supine position. A pneumatic ankle tourniquet was then placed about the patient's right ankle. Following intravenous sedation, local anesthesia of 7 mL of 1:1 mixture of 1% lidocaine plain and 0.5% Marcaine plain was administered to the proximal aspect of the right third metatarsophalangeal joint. The foot was then scrubbed, prepped, and draped the usual aseptic manner. An Esmarch bandage was then utilized to exsanguinate the patient's right foot and pneumatic ankle tourniquet was inflated to 250 mmHg. Utilizing a 10 surgical blade, two elliptical incisions were made around the third toe. The incision was deepened through subcutaneous tissue to metatarsophalangeal joint area and excessive purulent matter was noted coming from the metatarsophalangeal joint area. The incision was deepened through capsule and the toe was disarticulated and removed from the surgical site. All purulent matter was cleaned out. The wound was then examined for sinus tracts probing and undermining tunneling and no other purulent matter was identified. The wound was then cultured for gram-positive and negative, aerobic, anaerobic, and fungus. At this time, utilizing a 15-blade, the metatarsal head was freed from its soft tissue attachment. Utilizing a bone saw, the distal aspect of the metatarsal neck was then excised and was passed for pathology. The wound was then flushed with copious amounts of normal saline mixed with bacitracin. This subcutaneous tissue was then reapproximated utilizing 3-0 Vicryl and the skin was then reapproximated utilizing 3-0 nylon in mattress suture technique. Upon completion of the procedure, the incision was dressed with Betadine, covered with 4 x 4 and Kerlix. The pneumatic ankle tourniquet was deflated. Prompt hyperemia was noted to digits of 1, 2 and 4 of the right foot. A Coban was placed on top of the foot. The patient tolerated the procedure and anesthesia well and was transferred to the recovery room with vital signs stable and vascular status intact to digits 1 through 5 of the right foot. Following a period of postoperative monitoring, the patient will be discharged back to the floor to his room. Order was given to resume all preoperative medicines and resume diet. Order was written to keep dressing dry and intact. The patient will be followed. Dhara CabreraPDonnyM DR: Emily JOB#: [id number] CC: OXANA
[2018-10-05] MEDS: NovoLOG Insulin Flexpen SUBQ SCH ×4 (06:01→20:16)
--- NOTE | 2018-10-05 07:30 | NUR ---
HAND-OFF: Report given to SCOOTER Beltran.
--- NOTE | 2018-10-05 07:35 | NUR ---
NURSE NOTES: Received patient in bed, awake, not in respiratory/cardiac distress. Denies any pain or discomfort patient is calm @ this time. Dressing and Stockinette on right foot intact, no bleeding on dressing. IV intact,no s/s of infiltration. Bed is in lowest position and locked. Call light and personnel items within reach. Will continue plan of care.
[2018-10-05 08:00] VITALS: BP 132/88
[2018-10-05] MEDS: Vancomycin 750mg/NS 275ml IVPB SCH ×6 (08:50→23:50)
[2018-10-05] MEDS: metFORMIN 500mg tab ORAL SCH ×2 (08:50→17:21)
--- NOTE | 2018-10-05 08:55 | NUR ---
NURSE NOTES: RN spoke to the pharmacist and relayed VT level of 7.2 to continue with Vancomycin 750mg for now.
[2018-10-05 12:00] VITALS: BP 131/73
[2018-10-05] MEDS ORDERED: Vancomycin 500mg/D5W 110ml IVPB SCH ×2 (15:00)
--- NOTE | 2018-10-05 15:15 | Pulmonology Progress Note ---
Assessment/Plan Assessment/Plan IMPRESSION: 1. Diabetic foot ulcer with osteo 2. Homelessness. 3. Diabetes mellitus. DISCUSSION: Continue metformin, insulin sliding scale, IV fluids, IV vancomycin and Zosyn. Seen by Podiatry. I will follow carefully. POD #1 Subjective Interval Events: POD #1 surgery on R foot Constitutional: Reports: no symptoms HEENT: Repors: no symptoms Respiratory: Reports: no symptoms Cardiovascular: Reports: no symptoms Gastrointestinal/Abdominal: Reports: no symptoms Genitourinary: Reports: no symptoms Neurologic: Reports: no symptoms Allergies: Coded Allergies: No Known Allergies (Unverified , 10/01/18) Objective Last 24 Hour Vital Signs Date Time Temp Pulse Resp B/P (MAP) Pulse Ox O2 Delivery O2 Flow Rate FiO2 10/05/18 12:00 98.8 83 16 131/73 (92) 99 10/05/18 09:00 Room Air 10/05/18 08:00 98.4 74 17 132/88 (103) 99 10/04/18 21:00 Room Air 10/04/18 20:00 98.2 69 18 134/79 (97) 99 10/04/18 16:00 98.0 80 18 113/67 (82) 100 10/04/18 16:00 97.6 67 18 113/67 100 Nasal Cannula 3 10/04/18 15:45 66 16 114/63 100 Nasal Cannula 3 10/04/18 15:30 64 17 110/63 100 Simple Mask 6 10/04/18 15:15 67 18 110/65 100 Simple Mask 6 Intake and Output 10/04/18 10/05/18 19:00 07:00 Intake Total 1136.666 ml 551.666 ml Output Total 520 ml 550 ml Balance 616.666 ml 1.666 ml Intake Oral 240 ml IV Total 896.666 ml 551.666 ml Output Urine Total 500 ml 550 ml Estimated Blood Loss 20 ml General Appearance: no acute distress HEENT: normocephalic Respiratory/Chest: chest wall non-tender, lungs clear Cardiovascular: normal peripheral pulses, normal rate Abdomen: normal bowel sounds Laboratory Tests 10/05/18 06:00: Vancomycin Level Trough 7.2 Current Medications Medications (Trade) Dose Ordered Sig/Alissa Route PRN Reason Start Time Stop Time Status Last Admin Dose Admin Acetaminophen (Tylenol) 650 mg Q6H PRN ORAL Mild Pain/Temp > 100.5 10/03/18 23:45 11/02/18 23:44 10/03/18 23:44 Dextrose (Dextrose 50%) 25 ml Q30M PRN IV Hypoglycemia 10/01/18 22:45 10/31/18 22:44 Dextrose (Dextrose 50%) 50 ml Q30M PRN IV Hypoglycemia 10/01/18 22:45 10/31/18 22:44 Hydromorphone HCl (Dilaudid) 0.5 mg Q4H PRN IVP For Pain 10/01/18 23:15 10/08/18 23:14 10/03/18 23:41 Insulin Aspart (NovoLOG) BEFORE MEALS AND HS SUBQ 10/02/18 06:30 11/01/18 06:29 10/05/18 12:10 Metformin HCl (Glucophage) 500 mg TWICE A DAY ORAL 10/02/18 09:00 11/01/18 08:59 10/05/18 08:50 Piperacillin Sod/ Tazobactam Sod 3.375 gm/Sodium Chloride 110 ml @ 27.5 mls/hr Q8HR@0000,0800,1600 IVPB 10/04/18 16:00 10/11/18 15:59 10/05/18 10:41 Sodium Chloride 1,000 ml @ 75 mls/hr [id number] IV 10/04/18 08:30 11/03/18 08:29 10/05/18 12:59 Vancomycin HCl (Vanco rx to dose) 1 ea DAILY PRN MISC Per rx protocol 10/01/18 22:45 10/31/18 22:44 Vancomycin HCl 750 mg/Sodium Chloride 275 ml @ 183.333 mls/hr Q8H IVPB 10/05/18 15:00 10/10/18 14:59 Sidney Kraft MD October 05, 2018 15:14
--- NOTE | 2018-10-05 15:39 | NUR ---
CASE MANAGEMENT: REVIEW SI: RIGHT LEG CELLULITIS . RIGHT FOOT ULCER RIGHT TOE AMPUTATION 10/04 T 98.8 HR 83 RR 16 BP 131/73 SAT 99% ROOM AIR IS: VANCO IV Q8HR ZOSYN IV Q8HR NS IVF @75ML/HR METFORMIN PO BID DILAUDID 0.5 IV Q4HR PRN MED/SURG UNIT STATUS DCP: PATIENT REPORTS HOMELESSNESS
[2018-10-05 16:00] VITALS: BP 120/70
[2018-10-05] MEDS ORDERED: NS 500ML ONE (16:54)
[2018-10-05] MEDS ORDERED: Tubing IV Secondary IV ONE (16:54)
--- NOTE | 2018-10-05 18:00 | NUR ---
NURSE NOTES: Dressing on right foot intact and dry, no drainage or blood noted.
--- NOTE | 2018-10-05 19:27 | NUR ---
HAND-OFF: Report given to Cristina.
--- NOTE | 2018-10-05 19:36 | NUR ---
NURSE NOTES: Pt received awake, alert in bed eating a sandwhich, able to make needs known, call light within reach, dressing on rt foot clean and dry, no c/o pain or signs of distress, will continue to monitor.
[2018-10-05 20:00] VITALS: BP 133/68
[2018-10-06] VITALS: BP 120/62
[2018-10-06] MEDS: Zoysn 3.37gm in NS 100ML IVPB SCH ×3 (02:02→17:30)
[2018-10-06] MEDS: Vancomycin 750mg/NS 275ml IVPB SCH ×2 (06:06)
[2018-10-06] MEDS: NovoLOG Insulin Flexpen SUBQ SCH ×4 (06:06→20:14)
[2018-10-06 06:14] LABS: BASOPHILS % (AUTO) 1.3 % (0.0-2.0); EOSINOPHILS % (AUTO) 6.1 % (0.0-3.0); HEMATOCRIT 28.2 % (42.0-52.0); HEMOGLOBIN 9.2 G/DL (14.2-18.0); LYMPHOCYTES % (AUTO) 26.4 % (20.0-45.0); MEAN CORPUSCULAR VOLUME 76 FL (80-99); MONOCYTES % (AUTO) 5.3 % (1.0-10.0); NEUTROPHILS % (AUTO) 60.8 % (45.0-75.0); PLATELET COUNT 354 K/UL (150-450); RED BLOOD COUNT 3.72 M/UL (4.70-6.10); RED CELL DISTRIBUTION WIDTH 12.7 % (11.6-14.8); WHITE BLOOD COUNT 6.6 K/UL (4.8-10.8)
[2018-10-06 06:37] LABS: ANION GAP 4 mmol/L (5-15); BLOOD UREA NITROGEN 17 mg/dL (7-18); CALCIUM 8.6 MG/DL (8.5-10.1); CARBON DIOXIDE 29 MMOL/L (21-32); CHLORIDE 104 MMOL/L (98-107); CREATININE 0.9 MG/DL (0.55-1.30); POTASSIUM 4.5 MMOL/L (3.5-5.1); SODIUM 137 MMOL/L (136-145)
--- NOTE | 2018-10-06 07:45 | NUR ---
HAND-OFF: Report given to SCOOTER Vicente.
[2018-10-06 08:00] VITALS: BP 133/66
--- NOTE | 2018-10-06 08:00 | NUR ---
NURSE NOTES: received pt lying on bed, no complaint of pain or discomfort at this time. right 3rd toe has adaptic and is painted with Betadine. IV access running through LFA access. . Bed locked at the lowest position possible, call light within easy reach, siderails up x2. Will continue to monitor patient and follow up with the plan of care.
[2018-10-06] MEDS: metFORMIN 500mg tab ORAL SCH ×2 (08:56→17:30)
--- NOTE | 2018-10-06 09:56 | Podiatric Progress Note ---
Assessment/Plan Patient Wesly Wheat Jr is a 47 year old male who was admitted on October 01, 2018 at 21:31 with Problems: (1) Cellulitis, toe (2) Diabetes mellitus type 2 with neurological manifestations (3) Foot ulcer due to secondary DM (4) Abscess of toe of right foot Assessment/Plan patient s/p R 3rd amputation healing well Patient can be discharged with local wound care orders and IV abx Patient to be transferred to SNF for post op care. Subjective Allergies: Coded Allergies: No Known Allergies (Unverified , 10/01/18) Subjective Patient s/p R 3rd toe amputation with biopsy of R 3rd met head. healing well WBC has normalized. Patient has no c/o denies f/c/n/v Objective Exam Last 24 Hour Vital Signs Date Time Temp Pulse Resp B/P (MAP) Pulse Ox O2 Delivery O2 Flow Rate FiO2 10/06/18 00:00 98.0 77 18 120/62 (81) 98 10/05/18 21:00 Room Air 10/05/18 20:00 97.9 83 18 133/68 (89) 98 10/05/18 16:00 97.9 83 17 120/70 (87) 100 10/05/18 12:00 98.8 83 16 131/73 (92) 99 Laboratory Tests Test 10/06/18 06:00 White Blood Count 6.6 K/UL (4.8-10.8) Red Blood Count 3.72 M/UL (4.70-6.10) L Hemoglobin 9.2 G/DL (14.2-18.0) L Hematocrit 28.2 % (42.0-52.0) L Mean Corpuscular Volume 76 FL (80-99) L Mean Corpuscular Hemoglobin 24.6 PG (27.0-31.0) L Mean Corpuscular Hemoglobin Concent 32.5 G/DL (32.0-36.0) Red Cell Distribution Width 12.7 % (11.6-14.8) Platelet Count 354 K/UL (150-450) Mean Platelet Volume 3.8 FL (6.5-10.1) L Neutrophils (%) (Auto) 60.8 % (45.0-75.0) Lymphocytes (%) (Auto) 26.4 % (20.0-45.0) Monocytes (%) (Auto) 5.3 % (1.0-10.0) Eosinophils (%) (Auto) 6.1 % (0.0-3.0) H Basophils (%) (Auto) 1.3 % (0.0-2.0) Sodium Level 137 MMOL/L (136-145) Potassium Level 4.5 MMOL/L (3.5-5.1) Chloride Level 104 MMOL/L (98-107) Carbon Dioxide Level 29 MMOL/L (21-32) Anion Gap 4 mmol/L (5-15) L Blood Urea Nitrogen 17 mg/dL (7-18) Creatinine 0.9 MG/DL (0.55-1.30) Estimat Glomerular Filtration Rate > 60 mL/min (>60) Glucose Level 123 MG/DL (74-106) H Calcium Level 8.6 MG/DL (8.5-10.1) Vancomycin Level Trough 12.8 ug/mL (5.0-12.0) H Microbiology Date/Time Source Procedure Growth Status 10/01/18 21:58 Nasal Nares MRSA Culture - Final NO METHICILLIN RESISTANT STAPH AUREUS... Complete 10/04/18 14:30 Toe Right Third Gram Stain - Final Resulted 10/04/18 14:30 Toe Right Third Aerobic Culture Pending Resulted 10/04/18 14:30 Toe Right Third Anaerobic Culture Pending Resulted Dermatological Dermatological Narrative R surgical site is clear from drainage and discharge. sutures are intact. cellulitis is resolving. edema is less Anam Berry DPM October 06, 2018 09:56
--- NOTE | 2018-10-06 10:00 | NUR ---
NURSE NOTES: Dr. Berry seeing pt, asks nurse to apply betadine to R 3rd toe, above already placed adaptic, and dry dressing, secured with tape..
--- NOTE | 2018-10-06 10:04 | Pulmonology Progress Note ---
Assessment/Plan Assessment/Plan IMPRESSION: 1. Diabetic foot ulcer with osteo 2. Homelessness. 3. Diabetes mellitus. DISCUSSION: Continue metformin, insulin sliding scale, IV fluids, IV vancomycin and Zosyn. Seen by Podiatry. I will follow carefully. POD #2 PiCC line Dc plasnning to SNF Subjective Interval Events: Looking and feeling better Constitutional: Reports: no symptoms HEENT: Repors: no symptoms Respiratory: Reports: no symptoms Cardiovascular: Reports: no symptoms Gastrointestinal/Abdominal: Reports: no symptoms Genitourinary: Reports: no symptoms Allergies: Coded Allergies: No Known Allergies (Unverified , 10/01/18) Objective Last 24 Hour Vital Signs Date Time Temp Pulse Resp B/P (MAP) Pulse Ox O2 Delivery O2 Flow Rate FiO2 10/06/18 00:00 98.0 77 18 120/62 (81) 98 10/05/18 21:00 Room Air 10/05/18 20:00 97.9 83 18 133/68 (89) 98 10/05/18 16:00 97.9 83 17 120/70 (87) 100 10/05/18 12:00 98.8 83 16 131/73 (92) 99 Intake and Output 10/05/18 10/06/18 18:59 06:59 Intake Total 2173.333 ml 1791.666 ml Output Total 2830 ml Balance 2173.333 ml -1038.334 ml Intake Oral 960 ml IV Total 1283.333 ml 831.666 ml Other 890 ml Output Urine Total 2830 ml General Appearance: no acute distress HEENT: normocephalic Respiratory/Chest: chest wall non-tender Cardiovascular: normal peripheral pulses, normal rate Abdomen: normal bowel sounds Microbiology Date/Time Source Procedure Growth Status 10/04/18 14:30 Toe Right Third Gram Stain - Final Resulted 10/04/18 14:30 Toe Right Third Aerobic Culture Pending Resulted 10/04/18 14:30 Toe Right Third Anaerobic Culture Pending Resulted Laboratory Tests 10/06/18 06:00: White Blood Count 6.6, Red Blood Count 3.72L, Hemoglobin 9.2L, Hematocrit 28.2L , Mean Corpuscular Volume 76L, Mean Corpuscular Hemoglobin 24.6L, Mean Corpuscular Hemoglobin Concent 32.5, Red Cell Distribution Width 12.7, Platelet Count 354, Mean Platelet Volume 3.8L, Neutrophils (%) (Auto) 60.8, Lymphocytes ( %) (Auto) 26.4, Monocytes (%) (Auto) 5.3, Eosinophils (%) (Auto) 6.1H, Basophils (%) (Auto) 1.3, Sodium Level 137, Potassium Level 4.5, Chloride Level 104, Carbon Dioxide Level 29, Anion Gap 4L, Blood Urea Nitrogen 17, Creatinine 0.9, Estimat Glomerular Filtration Rate > 60, Glucose Level 123H, Calcium Level 8.6, Vancomycin Level Trough 12.8H Current Medications Medications (Trade) Dose Ordered Sig/Alissa Route PRN Reason Start Time Stop Time Status Last Admin Dose Admin Acetaminophen (Tylenol) 650 mg Q6H PRN ORAL Mild Pain/Temp > 100.5 10/03/18 23:45 11/02/18 23:44 10/03/18 23:44 Dextrose (Dextrose 50%) 25 ml Q30M PRN IV Hypoglycemia 10/01/18 22:45 10/31/18 22:44 Dextrose (Dextrose 50%) 50 ml Q30M PRN IV Hypoglycemia 10/01/18 22:45 10/31/18 22:44 Hydromorphone HCl (Dilaudid) 0.5 mg Q4H PRN IVP For Pain 10/01/18 23:15 10/08/18 23:14 10/03/18 23:41 Insulin Aspart (NovoLOG) BEFORE MEALS AND HS SUBQ 10/02/18 06:30 11/01/18 06:29 10/06/18 06:06 Metformin HCl (Glucophage) 500 mg TWICE A DAY ORAL 10/02/18 09:00 11/01/18 08:59 10/06/18 08:56 Piperacillin Sod/ Tazobactam Sod 3.375 gm/Sodium Chloride 110 ml @ 27.5 mls/hr Q8HR@0000,0800,1600 IVPB 10/04/18 16:00 10/11/18 15:59 10/06/18 08:57 Sodium Chloride 1,000 ml @ 75 mls/hr [id number] IV 10/04/18 08:30 11/03/18 08:29 10/06/18 09:11 Vancomycin HCl (Vanco rx to dose) 1 ea DAILY PRN MISC Per rx protocol 10/01/18 22:45 10/31/18 22:44 Vancomycin HCl 1 gm/Dextrose 275 ml @ 183.708 mls/hr Q8H IVPB 10/06/18 15:00 10/11/18 14:59 Sidney Kraft MD October 06, 2018 10:04
[2018-10-06] MEDS ORDERED: Lidocaine 1% Plain 30 ml INJ PRN (10:15)
[2018-10-06] MEDS ORDERED: Heparin1,000 units/500ml Premix(Conc:2 units/ml) IV PRN (10:15)
[2018-10-06 12:00] VITALS: BP 131/72
[2018-10-06] MEDS: Vancomycin 1gm in D5W 275ml IVPB SCH ×2 (15:01→22:48)
--- NOTE | 2018-10-06 15:27 | NUR ---
CASE MANAGEMENT: REVIEW SI: RIGHT LEG CELLULITIS . RIGHT FOOT ULCER w/OSTEO RIGHT TOE AMPUTATION 10/04 T 99.4 HR 77 RR 19 BP 131/72 SAT 98% ROOM AIR H/H 9.2/ 28.2 IS: VANCO IV Q8HR ZOSYN IV Q8HR NS IVF @75ML/HR METFORMIN PO BID DILAUDID 0.5 IV Q4HR PRN MED/SURG UNIT STATUS DCP: PATIENT REPORTS HOMELESSNESS PLAN: PICC PLACEMENT
--- NOTE | 2018-10-06 19:22 | NUR ---
HAND-OFF: Report given to SCOOTER Evans.
--- NOTE | 2018-10-06 19:22 | NUR ---
NURSE NOTES: Pt received awake, standing in the doorway asking for a sandwhich, no signs of distress or c/o pain at the moment, dressing on rt foot was changed this morning and dressing is intact, able to make needs known, will continue to monitor.
[2018-10-06 20:00] VITALS: BP 131/77
[2018-10-06] MEDS: Dyna-Hex 2% Top Sol 2oz TOPIC SCH (20:08)
[2018-10-07] MEDS: Zoysn 3.37gm in NS 100ML IVPB SCH ×3 (00:57→16:21)
[2018-10-07] MEDS: Vancomycin 1gm in D5W 275ml IVPB SCH ×3 (05:48→22:37)
[2018-10-07] MEDS: NovoLOG Insulin Flexpen SUBQ SCH ×4 (05:55→22:32)
--- NOTE | 2018-10-07 07:11 | NUR ---
HAND-OFF: Report given to SCOOTER Angela.
--- NOTE | 2018-10-07 07:21 | NUR ---
NURSE NOTES: received report from SCOOTER Evans. patient in bed. A&Ox4, verbally responsive. no respiratory distress noted. no c/o pain at this time. RT food elevated with pillow. dressing intact. lt foot with scd on. IV on LFA running ATB. bed in the lowest position. call light within reach. will continue to monitor.
[2018-10-07 08:00] VITALS: BP 146/68
[2018-10-07] MEDS: metFORMIN 500mg tab ORAL SCH ×2 (08:23→18:07)
--- NOTE | 2018-10-07 09:58 | Pulmonology Progress Note ---
Assessment/Plan Assessment/Plan IMPRESSION: 1. Diabetic foot ulcer with osteo 2. Homelessness. 3. Diabetes mellitus. DISCUSSION: Continue metformin, insulin sliding scale, IV fluids, IV vancomycin and Zosyn. Seen by Podiatry. I will follow carefully. POD #3 PiCC line ordered Dc planning to SNF Subjective Interval Events: No new events Constitutional: Reports: no symptoms HEENT: Repors: no symptoms Respiratory: Reports: no symptoms Cardiovascular: Reports: no symptoms Gastrointestinal/Abdominal: Reports: no symptoms Genitourinary: Reports: no symptoms Allergies: Coded Allergies: No Known Allergies (Unverified , 10/01/18) Objective Last 24 Hour Vital Signs Date Time Temp Pulse Resp B/P (MAP) Pulse Ox O2 Delivery O2 Flow Rate FiO2 10/07/18 08:00 97.6 71 18 146/68 (94) 100 10/06/18 21:00 Room Air 10/06/18 20:00 97.6 72 18 131/77 (95) 98 10/06/18 12:00 99.4 77 19 131/72 (91) 98 Intake and Output 10/06/18 10/07/18 19:00 07:00 Intake Total 1337.500 ml 642.5 ml Output Total 2000 ml 1050 ml Balance -662.500 ml -407.5 ml Intake Oral 400 ml IV Total 937.500 ml 642.5 ml Output Urine Total 2000 ml 1050 ml # Voids 2 General Appearance: no acute distress HEENT: normocephalic, mucous membranes moist Respiratory/Chest: chest wall non-tender Cardiovascular: normal peripheral pulses, normal rate Abdomen: normal bowel sounds Microbiology Date/Time Source Procedure Growth Status 10/04/18 14:30 Toe Right Third Gram Stain - Final Complete 10/04/18 14:30 Aerobic Culture - Final Staphylococcus Aureus Streptococcus Group C Diphtheroids Complete 10/04/18 14:30 Toe Right Third Anaerobic Culture - Final NO ANAEROBES ISOLATED Complete Current Medications Medications (Trade) Dose Ordered Sig/Alissa Route PRN Reason Start Time Stop Time Status Last Admin Dose Admin Acetaminophen (Tylenol) 650 mg Q6H PRN ORAL Mild Pain/Temp > 100.5 10/03/18 23:45 11/02/18 23:44 10/03/18 23:44 Chlorhexidine Gluconate (Vero-Hex 2%) 1 applic DAILY@1999 TOPIC 10/06/18 20:00 11/05/18 19:59 10/06/18 20:08 Dextrose (Dextrose 50%) 25 ml Q30M PRN IV Hypoglycemia 10/01/18 22:45 10/31/18 22:44 Dextrose (Dextrose 50%) 50 ml Q30M PRN IV Hypoglycemia 10/01/18 22:45 10/31/18 22:44 Heparin Sodium/ Sodium Chloride (Heparin 1000 units/500ml Premix) 1,000 unit ONCE PRN IV PICC LINE 10/06/18 10:15 10/08/18 10:14 Hydromorphone HCl (Dilaudid) 0.5 mg Q4H PRN IVP For Pain 10/01/18 23:15 10/08/18 23:14 10/03/18 23:41 Insulin Aspart (NovoLOG) BEFORE MEALS AND HS SUBQ 10/02/18 06:30 11/01/18 06:29 10/07/18 05:55 Lidocaine HCl (Xylocaine 1% 30ml) 30 ml ONCE PRN INJ PICC LINE 10/06/18 10:15 10/08/18 10:14 Metformin HCl (Glucophage) 500 mg TWICE A DAY ORAL 10/02/18 09:00 11/01/18 08:59 10/07/18 08:23 Piperacillin Sod/ Tazobactam Sod 3.375 gm/Sodium Chloride 110 ml @ 27.5 mls/hr Q8HR@0000,0800,1600 IVPB 10/04/18 16:00 10/11/18 15:59 10/07/18 08:24 Sodium Chloride 1,000 ml @ 75 mls/hr [id number] IV 10/04/18 08:30 11/03/18 08:29 10/07/18 02:11 Vancomycin HCl (Vanco rx to dose) 1 ea DAILY PRN MISC Per rx protocol 10/01/18 22:45 10/31/18 22:44 Vancomycin HCl 1 gm/Dextrose 275 ml @ 183.708 mls/hr Q8H IVPB 10/06/18 15:00 10/11/18 14:59 10/07/18 05:48 Sidney Kraft MD October 07, 2018 09:58
[2018-10-07 12:00] VITALS: BP 130/69
--- NOTE | 2018-10-07 14:41 | NUR ---
NURSE NOTES: vanco trough 16.7 at 1430. spoke to pharmacy and ok to hang same dosage vanco 1gm/275ml as ordered.
[2018-10-07 16:00] VITALS: BP 127/76
--- NOTE | 2018-10-07 16:57 | NUR ---
MASS SPECTROMETRY SPECIALISTRIM TECHNICIAN SI:RIGHT LEG CELLULITIS . RIGHT FOOT ULCER w/OSTEO VS: BP 146/68, P 71, T 98.5, RR 19, SpO2 100 NO LABS TODAY IS:NOVOLOG SUBQ VANCOMYCIN 275ml IVPB ZOSYN 110ml IVPB METFORMIN 500mg NS x1L IV MED/SURG STATUS
--- NOTE | 2018-10-07 19:27 | NUR ---
HAND-OFF: Report given to SCOOTER Ross.
--- NOTE | 2018-10-07 19:28 | NUR ---
NURSE NOTES: Received report from SCOOTER Duenas. Patient in is bed, awake. A&Ox4, verbally responsive, appropriate, on room air. No s/sx of respiratory distress noted. No c/o pain at this time. RT foot elevated with pillow. dressing intact. Left foot with scd on. IV on LFA, patent, asymptomatic. Bed in the lowest position. call light within reach. will continue to monitor.
[2018-10-07 20:00] VITALS: BP 127/60
[2018-10-07] MEDS: Dyna-Hex 2% Top Sol 2oz TOPIC SCH (20:00)
[2018-10-08] VITALS: BP 120/68
[2018-10-08] MEDS: Zoysn 3.37gm in NS 100ML IVPB SCH ×3 (00:08→18:28)
[2018-10-08 04:00] VITALS: BP 128/70
[2018-10-08] MEDS: Vancomycin 1gm in D5W 275ml IVPB SCH ×2 (05:55→16:11)
[2018-10-08] MEDS: NovoLOG Insulin Flexpen SUBQ SCH ×4 (06:28→21:54)
--- NOTE | 2018-10-08 07:25 | NUR ---
HAND-OFF: Report given to SCOOTER Avila.
--- NOTE | 2018-10-08 07:30 | NUR ---
NURSE NOTES: Received patient sitting up in a chair, alert and oriented x4. not in respiratory/cardiac distress. Denies pain or discomfort. Dressing on right foot intact, no bleeding or discharge or foul smell noted. Patient is ambulatory, SCD's on left leg off. Patient is wearing his own clothes @ this time. encouraged the patient to change clothes to hospital gown but patient refused @ this time. Will follow up and will continue plan of care.
[2018-10-08 08:00] VITALS: BP 114/69
[2018-10-08] MEDS: metFORMIN 500mg tab ORAL SCH ×2 (08:30→17:34)
--- NOTE | 2018-10-08 09:43 | Pulmonology Progress Note ---
Assessment/Plan Assessment/Plan IMPRESSION: 1. Diabetic foot ulcer with osteo 2. Homelessness. 3. Diabetes mellitus. DISCUSSION: Continue metformin, insulin sliding scale, IV fluids, IV vancomycin and Zosyn. Seen by Podiatry. I will follow carefully. POD #4 PiCC line ordered; for placement today Dc planning to SNF Subjective Interval Events: For PICC today Constitutional: Reports: no symptoms HEENT: Repors: no symptoms Respiratory: Reports: no symptoms Cardiovascular: Reports: no symptoms Gastrointestinal/Abdominal: Reports: no symptoms Allergies: Coded Allergies: No Known Allergies (Unverified , 10/01/18) Objective Last 24 Hour Vital Signs Date Time Temp Pulse Resp B/P (MAP) Pulse Ox O2 Delivery O2 Flow Rate FiO2 10/08/18 09:00 Room Air 10/08/18 08:00 98.1 76 18 114/69 (84) 99 10/08/18 04:00 98.6 69 18 128/70 (89) 99 10/08/18 00:00 98.6 72 18 120/68 (85) 99 10/07/18 21:00 Room Air 10/07/18 20:00 98.2 74 18 127/60 (82) 99 10/07/18 16:00 98.0 67 19 127/76 (93) 98 10/07/18 12:00 98.5 79 19 130/69 (89) 99 Intake and Output 10/07/18 10/08/18 19:00 07:00 Intake Total 2482.766 ml Output Total 3000 ml Balance 2482.766 ml -3000 ml IV Total 1282.766 ml Other 1200 ml Output Urine Total 3000 ml General Appearance: no acute distress HEENT: normocephalic Respiratory/Chest: chest wall non-tender, lungs clear Cardiovascular: normal peripheral pulses, normal rate Abdomen: normal bowel sounds, soft, non tender Laboratory Tests 10/07/18 13:55: Vancomycin Level Trough 16.7H Current Medications Medications (Trade) Dose Ordered Sig/Alissa Route PRN Reason Start Time Stop Time Status Last Admin Dose Admin Acetaminophen (Tylenol) 650 mg Q6H PRN ORAL Mild Pain/Temp > 100.5 10/03/18 23:45 11/02/18 23:44 10/03/18 23:44 Chlorhexidine Gluconate (Vero-Hex 2%) 1 applic DAILY@1999 TOPIC 10/06/18 20:00 11/05/18 19:59 10/06/18 20:08 Dextrose (Dextrose 50%) 25 ml Q30M PRN IV Hypoglycemia 10/01/18 22:45 10/31/18 22:44 Dextrose (Dextrose 50%) 50 ml Q30M PRN IV Hypoglycemia 10/01/18 22:45 10/31/18 22:44 Heparin Sodium/ Sodium Chloride (Heparin 1000 units/500ml Premix) 1,000 unit ONCE PRN IV PICC LINE 10/06/18 10:15 10/08/18 10:14 Hydromorphone HCl (Dilaudid) 0.5 mg Q4H PRN IVP For Pain 10/01/18 23:15 10/08/18 23:14 10/03/18 23:41 Insulin Aspart (NovoLOG) BEFORE MEALS AND HS SUBQ 10/02/18 06:30 11/01/18 06:29 10/08/18 06:28 Lidocaine HCl (Xylocaine 1% 30ml) 30 ml ONCE PRN INJ PICC LINE 10/06/18 10:15 10/08/18 10:14 Metformin HCl (Glucophage) 500 mg TWICE A DAY ORAL 10/02/18 09:00 11/01/18 08:59 10/08/18 08:30 Piperacillin Sod/ Tazobactam Sod 3.375 gm/Sodium Chloride 110 ml @ 27.5 mls/hr Q8HR@0000,0800,1600 IVPB 10/04/18 16:00 10/11/18 15:59 10/08/18 08:41 Sodium Chloride 1,000 ml @ 75 mls/hr [id number] IV 10/04/18 08:30 11/03/18 08:29 10/08/18 05:39 Vancomycin HCl (Vanco rx to dose) 1 ea DAILY PRN MISC Per rx protocol 10/01/18 22:45 10/31/18 22:44 Vancomycin HCl 1 gm/Dextrose 275 ml @ 183.708 mls/hr Q8H IVPB 10/06/18 15:00 10/11/18 14:59 10/08/18 05:55 Sidney Kraft MD October 08, 2018 09:43
[2018-10-08 12:00] VITALS: BP 117/65
--- NOTE | 2018-10-08 12:28 | Diagnostic Imaging Report ---
Indication: Foot Pain Comparison: None Findings: 3 views of the right foot were obtained. Status post resection of the third toe at the level of the metatarsal head noted. Skin suzy noted. Soft tissue swelling and air noted indicative of the recent surgery. Moderate plantar calcaneal spur demonstrated IMPRESSION: Postop confirmation
--- NOTE | 2018-10-08 14:00 | NUR ---
NURSE NOTES: Per Teddy, PICC line insertion will be done later this afternoon.
--- NOTE | 2018-10-08 14:32 | NUR ---
*--* INSURANCE *-* UPDATED CLINICALS AND REVIEWS HAVE BEEN FAXED TO: NAVA: NANCI P:[phone] *[id number] F: [phone] (FAX CLINICALS)
--- NOTE | 2018-10-08 15:09 | NUR ---
RD ASSESSMENT & RECOMMENDATIONS SEE CARE ACTIVITY FOR COMPLETE ASSESSMENT DAILY ESTIMATED NEEDS: Needs based on Wounds, DM 68.7kg 25-35 kcals/kg 8644-5923 total kcals 1.25-1.5 g protein/kg 86-103 g total protein 25-30 mL/kg 3740-5942 total fluid mLs NUTRITION DIAGNOSIS: Increased pro needs R/t wound healing as evidenced by pt w/ R toe ulcer and OM, pending toe amputation. CURRENT DIET:CCHO LOW PO DIET RECOMMENDATIONS: CCHO LOW + HIGH PROT SNACKS IN B/W MEALS ADDITIONAL RECOMMENDATIONS: 1) Obtain a calibrated bed scale wt 2) Wound care: add FLORINA BID + MVI x1 + VIT C 250mg BID 3) High pro snacks in b/w meals (1 carb each)
[2018-10-08 16:00] VITALS: BP 121/68
--- NOTE | 2018-10-08 17:09 | NUR ---
SENIOR ANALYST DEVELOPERSERVICE TRANSFORMER REPAIR SUPERVISOR SI:RIGHT LEG CELLULITIS . RIGHT FOOT ULCER w/OSTEO VS: BP 121/68, P 79, T 98.3, RR 18, SpO2 98 NO LABS TODAY IS:NOVOLOG SUBQ VANCOMYCIN 275ml IVPB ZOSYN 110ml IVPB METFORMIN 500mg NS x1L IV MED/SURG STATUS
--- NOTE | 2018-10-08 18:00 | NUR ---
NURSE NOTES: RN changed the dressing of the right foot, no s/s of infection.
--- NOTE | 2018-10-08 19:30 | NUR ---
HAND-OFF: Report given to Chanelle.
--- NOTE | 2018-10-08 19:31 | NUR ---
NURSE NOTES: Received patient sitting up in a chair, alert and oriented x4. Appears somewhat restless. not in respiratory/cardiac distress. Denies pain or discomfort. Dressing on right foot intact, no bleeding or discharge or foul smell noted- changed today, 10/08 per day shift. Patient is ambulatory, SCD's on left leg off. Patient dressed in his own clothes @ this time. encouraged the patient to change to hospital gown but patient refused. Will follow up and will continue plan of care. Addendum: 10/08/18 at 2042 by Chanelle Weinstein RN NURSE NOTES: Pt was restless in that he was fidgeting, seemed distractible.
[2018-10-08 20:00] VITALS: BP 124/71
[2018-10-08] MEDS: Dyna-Hex 2% Top Sol 2oz TOPIC SCH (20:00)
[2018-10-09] VITALS: BP 101/50
[2018-10-09] MEDS: Vancomycin 1gm in D5W 275ml IVPB SCH ×4 (00:09→22:14)
[2018-10-09] MEDS: Zoysn 3.37gm in NS 100ML IVPB SCH ×3 (00:17→18:15)
[2018-10-09 04:00] VITALS: BP 100/60
[2018-10-09] MEDS: NovoLOG Insulin Flexpen SUBQ SCH ×4 (06:17→21:13)
--- NOTE | 2018-10-09 07:40 | NUR ---
HAND-OFF: Report given to SCOOTER Veronica
--- NOTE | 2018-10-09 07:41 | NUR ---
NURSE NOTES: Patient alert x4, on room air, no sign of distress and shortness of breath; no sign of chest pain; IV LFA Vanco running; urinal within reach; will check blood sugar as schedules; side rails up x2, breaks engaged, bed at lowest position; call light within reach; will keep monitoring,
--- NOTE | 2018-10-09 08:00 | NUR ---
NURSE NOTES: I received an order to put Lidonace and Heparine premix order before PICC line placement. Order carried out
[2018-10-09] MEDS ORDERED: Heparin1,000 units/500ml Premix(Conc:2 units/ml) IV PRN (08:15)
[2018-10-09] MEDS ORDERED: Lidocaine 1% Plain 30 ml INJ PRN (08:15)
--- NOTE | 2018-10-09 10:10 | Pulmonology Progress Note ---
Assessment/Plan Assessment/Plan IMPRESSION: 1. Diabetic foot ulcer with osteo 2. Homelessness. 3. Diabetes mellitus. DISCUSSION: Continue metformin, insulin sliding scale, IV fluids, IV vancomycin and Zosyn. Seen by Podiatry. I will follow carefully. POD #5 PiCC line ordered; for placement today Dc planning to SNF Subjective Interval Events: For PICC today Constitutional: Reports: no symptoms HEENT: Repors: no symptoms Respiratory: Reports: no symptoms Cardiovascular: Reports: no symptoms Gastrointestinal/Abdominal: Reports: no symptoms Genitourinary: Reports: no symptoms Allergies: Coded Allergies: No Known Allergies (Unverified , 10/01/18) Objective Last 24 Hour Vital Signs Date Time Temp Pulse Resp B/P (MAP) Pulse Ox O2 Delivery O2 Flow Rate FiO2 10/09/18 09:00 Room Air 10/09/18 04:00 98.0 66 18 100/60 (73) 96 10/09/18 00:00 99.9 77 18 101/50 (67) 10/08/18 21:00 Room Air 10/08/18 20:00 98.2 82 18 124/71 (88) 100 10/08/18 16:00 98.3 79 17 121/68 (85) 98 10/08/18 12:00 98.0 76 16 117/65 (82) 98 Intake and Output 10/08/18 10/09/18 19:00 07:00 Intake Total 2505.000 ml 487.500 ml Output Total 1400 ml Balance 2505.000 ml -912.500 ml Intake Oral 1220 ml IV Total 1285.000 ml 487.500 ml Output Urine Total 1400 ml # Voids 8 # Bowel Movements 1 General Appearance: no acute distress HEENT: normocephalic Respiratory/Chest: chest wall non-tender Cardiovascular: normal peripheral pulses, regular rhythm Abdomen: normal bowel sounds Current Medications Medications (Trade) Dose Ordered Sig/Alissa Route PRN Reason Start Time Stop Time Status Last Admin Dose Admin Acetaminophen (Tylenol) 650 mg Q6H PRN ORAL Mild Pain/Temp > 100.5 10/03/18 23:45 11/02/18 23:44 10/03/18 23:44 Chlorhexidine Gluconate (Vero-Hex 2%) 1 applic DAILY@1999 TOPIC 10/06/18 20:00 11/05/18 19:59 10/06/18 20:08 Dextrose (Dextrose 50%) 25 ml Q30M PRN IV Hypoglycemia 10/01/18 22:45 10/31/18 22:44 Dextrose (Dextrose 50%) 50 ml Q30M PRN IV Hypoglycemia 10/01/18 22:45 10/31/18 22:44 Heparin Sodium/ Sodium Chloride (Heparin 1000 units/500ml Premix) 1,000 unit ONCE PRN IV PICC 10/09/18 08:15 10/09/18 23:59 Insulin Aspart (NovoLOG) BEFORE MEALS AND HS SUBQ 10/02/18 06:30 11/01/18 06:29 10/09/18 06:17 Lidocaine HCl (Xylocaine 1% 30ml) 30 ml ONCE PRN INJ PICC 10/09/18 08:15 10/09/18 23:59 Metformin HCl (Glucophage) 500 mg TWICE A DAY ORAL 10/02/18 09:00 11/01/18 08:59 10/08/18 17:34 Piperacillin Sod/ Tazobactam Sod 3.375 gm/Sodium Chloride 110 ml @ 27.5 mls/hr Q8HR@0000,0800,1600 IVPB 10/04/18 16:00 10/11/18 15:59 10/09/18 00:17 Sodium Chloride 1,000 ml @ 75 mls/hr [id number] IV 10/04/18 08:30 11/03/18 08:29 10/08/18 05:39 Vancomycin HCl (Vanco rx to dose) 1 ea DAILY PRN MISC Per rx protocol 10/01/18 22:45 10/31/18 22:44 Vancomycin HCl 1 gm/Dextrose 275 ml @ 183.708 mls/hr Q8H IVPB 10/06/18 15:00 10/11/18 14:59 10/09/18 06:18 Sidney Kraft MD October 09, 2018 10:10
[2018-10-09] MEDS ORDERED: GLUCOPHAGE500 MG ORAL (10:11)
[2018-10-09] MEDS: metFORMIN 500mg tab ORAL SCH ×2 (10:29→18:15)
--- NOTE | 2018-10-09 11:38 | NUR ---
NURSE NOTES: Patient refused 1130 blood gulcose check and Novolog wasn't given. Charge nurse, Ismael is aware.
[2018-10-09 12:00] VITALS: BP 116/68
--- NOTE | 2018-10-09 12:31 | Diagnostic Imaging Report ---
Indications: Needs long-term IV access Technique: Ultrasound confirms patent compressible left basilic vein. Total sterile technique, including sterile probe cover and sterile gel, hat, mask, sterile gown, large sterile drape, and preparation with 2% chlorhexidine utilized. Local anesthesia with 1% lidocaine. Under real-time ultrasound guidance, puncture left basilic vein using 21-gauge needle, documented and archived, passage 0.018 guidewire under direct fluoroscopy. This would not pass centrally. 4 Marshallese peel-away sheath was inserted, and used to insert a 4 Marshallese Kumpe catheter. Despite the guidewire would not pass centrally. A limited venogram was therefore performed, this demonstrates complete occlusion of the left innominate vein. There is a tube and an a left-sided approach. The peel-away sheath was removed. Attention then turned to the right side Ultrasound confirms patent compressible right basilic vein. Total sterile technique, including sterile probe cover and sterile gel, hat, mask, sterile gown, large sterile drape, and preparation with 2% chlorhexidine utilized. Local anesthesia with 1% lidocaine. Under real-time ultrasound guidance, puncture ] basilic vein using 21-gauge needle, documented and archived, passage 0.018 guidewire under direct fluoroscopy, which was used to determine appropriate catheter length, exchange for 4 Marshallese peel-away sheath. 4 Marshallese dual-lumen power PICC cut to 43 cm. It was inserted through the peel-away sheath. Peel-away sheath and guidewire removed. Catheter fixed to the skin. Both catheter ports aspirated and flushed. Patient tolerated procedure well, without immediate complication. Digital radiograph documents satisfactory catheter tip position, at the cavoatrial junction. Total fluoroscopy time 0.80, 1.2 seconds. Total dose area product 0.84399 mGym2 Total number of images: 4 Impression: Successful placement of right arm PICC under sonographic and fluoroscopic guidance, as described above. Note left-sided central venoocclusive disease
--- NOTE | 2018-10-09 14:26 | NUR ---
*-* INSURANCE *-* UPDATED CLINICALS AND REVIEWS HAVE BEEN FAXED TO: NAVA: NANCI P:[phone] *[id number] F: [phone] (FAX CLINICALS)
--- NOTE | 2018-10-09 15:38 | NUR ---
NURSE NOTES: Dressing on the Right Foot changed; patient tolerated well.
[2018-10-09 16:00] VITALS: BP 109/56
--- NOTE | 2018-10-09 17:03 | NUR ---
DISCHARGE PLANNING FAXED REFERRAL TO [facility] WILL FOLLOW UP
--- NOTE | 2018-10-09 17:04 | NUR ---
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
--- NOTE | 2018-10-09 19:43 | NUR ---
HAND-OFF: Report given to SCOOTER Weinstein.
--- NOTE | 2018-10-09 19:44 | NUR ---
NURSE NOTES: Patient alert x4, on room air, no sign of distress nor shortness of breath; no sign of chest pain; PICC line placed earlier today and ok'd to use. Running IV fluids and zosyn at this time. Multiple urinals are within reach and asked pt not to place them on the floor as it spilled earlier; side rails up x2, locked, lowest position; call light within reach; will keep monitoring,
[2018-10-09 20:00] VITALS: BP 121/68
[2018-10-09] MEDS: Dyna-Hex 2% Top Sol 2oz TOPIC SCH (21:13)
[2018-10-10] MEDS: Zoysn 3.37gm in NS 100ML IVPB SCH ×3 (01:58→16:46)
[2018-10-10] MEDS: NovoLOG Insulin Flexpen SUBQ SCH ×4 (06:13→20:50)
[2018-10-10] MEDS: Vancomycin 1gm in D5W 275ml IVPB SCH ×3 (06:14→22:07)
--- NOTE | 2018-10-10 07:14 | NUR ---
HAND-OFF: Report given to SCOOTER Veronica.
--- NOTE | 2018-10-10 07:50 | NUR ---
NURSE NOTES: Patient alert x4, on room air, no sign of distress of distress; no sign of chest pain; IV Right Upper arm, double lumen Vanco running; dressing dry and intact on right toe; side rails up x2, breaks engaged, bed at lowest position; urinal within reach; will check blood sugar as scheduled; call light within reach; will keep monitoring.
[2018-10-10 08:00] VITALS: BP 115/54
[2018-10-10] MEDS: metFORMIN 500mg tab ORAL SCH ×2 (08:24→17:42)
--- NOTE | 2018-10-10 09:27 | Pulmonology Progress Note ---
Assessment/Plan Assessment/Plan IMPRESSION: 1. Diabetic foot ulcer with osteo 2. Homelessness. 3. Diabetes mellitus. DISCUSSION: Continue metformin, insulin sliding scale, IV fluids, IV vancomycin and Zosyn. Seen by Podiatry. I will follow carefully. POD #6 PiCC line ordered; for placement Dc planning to SNF Subjective Interval Events: None new Constitutional: Reports: no symptoms HEENT: Repors: no symptoms Respiratory: Reports: no symptoms Cardiovascular: Reports: no symptoms Gastrointestinal/Abdominal: Reports: no symptoms Genitourinary: Reports: no symptoms Allergies: Coded Allergies: No Known Allergies (Unverified , 10/01/18) Objective Last 24 Hour Vital Signs Date Time Temp Pulse Resp B/P (MAP) Pulse Ox O2 Delivery O2 Flow Rate FiO2 10/09/18 21:00 Room Air 10/09/18 20:00 98.6 78 18 121/68 (85) 99 10/09/18 16:00 98.6 85 20 109/56 (73) 99 10/09/18 12:00 97.3 83 20 116/68 (84) 97 Intake and Output 10/09/18 10/10/18 19:00 07:00 Intake Total 1861.124 ml 27.5 ml Output Total 1900 ml Balance 1861.124 ml -1872.5 ml Intake Oral 1200 ml IV Total 661.124 ml 27.5 ml Output Urine Total 1900 ml # Voids 2 General Appearance: no acute distress HEENT: normocephalic Respiratory/Chest: chest wall non-tender, lungs clear Cardiovascular: normal peripheral pulses Abdomen: normal bowel sounds Current Medications Medications (Trade) Dose Ordered Sig/Alissa Route PRN Reason Start Time Stop Time Status Last Admin Dose Admin Acetaminophen (Tylenol) 650 mg Q6H PRN ORAL Mild Pain/Temp > 100.5 10/03/18 23:45 11/02/18 23:44 10/03/18 23:44 Chlorhexidine Gluconate (Vero-Hex 2%) 1 applic DAILY@1999 TOPIC 10/06/18 20:00 11/05/18 19:59 10/09/18 21:13 Dextrose (Dextrose 50%) 25 ml Q30M PRN IV Hypoglycemia 10/01/18 22:45 10/31/18 22:44 Dextrose (Dextrose 50%) 50 ml Q30M PRN IV Hypoglycemia 10/01/18 22:45 10/31/18 22:44 Insulin Aspart (NovoLOG) BEFORE MEALS AND HS SUBQ 10/02/18 06:30 11/01/18 06:29 10/10/18 06:13 Metformin HCl (Glucophage) 500 mg TWICE A DAY ORAL 10/02/18 09:00 11/01/18 08:59 10/09/18 18:15 Piperacillin Sod/ Tazobactam Sod 3.375 gm/Sodium Chloride 110 ml @ 27.5 mls/hr Q8HR@0000,0800,1600 IVPB 10/04/18 16:00 10/11/18 15:59 10/10/18 08:24 Sodium Chloride 1,000 ml @ 75 mls/hr [id number] IV 10/04/18 08:30 11/03/18 08:29 10/09/18 22:15 Vancomycin HCl (Vanco rx to dose) 1 ea DAILY PRN MISC Per rx protocol 10/01/18 22:45 10/31/18 22:44 Vancomycin HCl 1 gm/Dextrose 275 ml @ 183.708 mls/hr Q8H IVPB 10/06/18 15:00 10/11/18 14:59 10/10/18 06:14 Sidney Kraft MD October 10, 2018 09:27
[2018-10-10 12:00] VITALS: BP 114/80
--- NOTE | 2018-10-10 13:12 | NUR ---
*-* INSURANCE *-* UPDATED CLINICALS AND REVIEWS HAVE BEEN FAXED TO: [facility]: NANCI P:[phone] *[id number] F: [phone] (FAX CLINICALS)
--- NOTE | 2018-10-10 14:33 | NUR ---
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
[2018-10-10 16:00] VITALS: BP 135/73
--- NOTE | 2018-10-10 19:29 | NUR ---
HAND-OFF: Report given to SCOOTER Lockwood.
[2018-10-10 20:00] VITALS: BP 124/66
--- NOTE | 2018-10-10 20:07 | NUR ---
NURSE NOTES: Patient in bed, awake, alert and verbally responsive. Able to make needs known. No complaint of pain or discomfort at the moment. Kept clean and comfortable. Bed in low and locked position. Provided safe environment. Call light is at bedside. Skin is warm and dry to touch. Abdomen is soft and non distended. Picc line is noted.IV fluid is infusing as ordered. Respiration is even and unlabored. Will continue plan of care.
[2018-10-10] MEDS: Dyna-Hex 2% Top Sol 2oz TOPIC SCH (20:48)
[2018-10-10 23:47] VITALS: BP 128/70
[2018-10-11] MEDS: Zoysn 3.37gm in NS 100ML IVPB SCH ×3 (01:01→16:56)
[2018-10-11 04:00] VITALS: BP 132/64
[2018-10-11] MEDS: NovoLOG Insulin Flexpen SUBQ SCH ×3 (06:30→17:03)
--- NOTE | 2018-10-11 06:39 | NUR ---
NURSE NOTES: Vancomycin IV medication is not on med bin or fridge.
--- NOTE | 2018-10-11 06:41 | NUR ---
NURSE NOTES: Patient refused blood sugar checked, refused medication. Informed patient of risks and benefits, still refused.
--- NOTE | 2018-10-11 07:30 | NUR ---
NURSE NOTES: Received pt from SCOOTER FINLEY. Pt is alert and orient x4. pt is in RA, No SOB or acute respiratory distress noted. pt has PICC WADE and intact iv access LFA 22G is [id number] well. no pain at this moment. all needs attended, bed is locked and is in the lowest position. call light within easy reach. will continue to monitor. no Vancomycin in t6he bin or refrigerator, called pharmacy to sent it to 4E. Will continue to monitor.
--- NOTE | 2018-10-11 07:37 | NUR ---
HAND-OFF: Report given to John Mendez.
[2018-10-11 08:00] VITALS: BP 121/75
[2018-10-11] MEDS: Vancomycin 1gm in D5W 275ml IVPB SCH ×2 (08:52→15:21)
[2018-10-11] MEDS: metFORMIN 500mg tab ORAL SCH ×2 (08:53→17:00)
--- NOTE | 2018-10-11 09:03 | NUR ---
NURSE NOTES: because vanco came late to the unit and pharmacy stated vanco and zoycin have contraindications together, will given Zosyn after vanco finish. will continue to monitor.
--- NOTE | 2018-10-11 09:07 | Pulmonology Progress Note ---
Assessment/Plan Assessment/Plan IMPRESSION: 1. Diabetic foot ulcer with osteo 2. Homelessness. 3. Diabetes mellitus. DISCUSSION: Continue metformin, insulin sliding scale, IV fluids, IV vancomycin and Zosyn. Seen by Podiatry. I will follow carefully. POD #[address] Dc planning to SNF Subjective Interval Events: None new; PICCin place Constitutional: Reports: no symptoms HEENT: Repors: no symptoms Respiratory: Reports: no symptoms Cardiovascular: Reports: no symptoms Gastrointestinal/Abdominal: Reports: no symptoms Allergies: Coded Allergies: No Known Allergies (Unverified , 10/01/18) Objective Last 24 Hour Vital Signs Date Time Temp Pulse Resp B/P (MAP) Pulse Ox O2 Delivery O2 Flow Rate FiO2 10/11/18 08:00 97.8 88 20 121/75 (90) 98 10/11/18 04:00 97.3 79 18 132/64 (86) 97 10/10/18 23:47 96.9 80 18 128/70 (89) 97 10/10/18 21:00 Room Air 10/10/18 20:00 97.2 79 19 124/66 (85) 99 10/10/18 16:00 98.2 80 20 135/73 (93) 99 10/10/18 12:00 98.2 80 20 114/80 (91) 97 Intake and Output 10/10/18 10/11/18 19:00 07:00 Intake Total 1982.416 ml 460.000 ml Output Total 1701 ml Balance 281.416 ml 460.000 ml Intake Oral 550 ml IV Total 1432.416 ml 460.000 ml Output Urine Total 1700 ml Stool Total 1 ml # Voids 2 General Appearance: no acute distress HEENT: normocephalic Respiratory/Chest: chest wall non-tender Cardiovascular: normal peripheral pulses, normal rate Abdomen: normal bowel sounds Current Medications Medications (Trade) Dose Ordered Sig/Alissa Route PRN Reason Start Time Stop Time Status Last Admin Dose Admin Acetaminophen (Tylenol) 650 mg Q6H PRN ORAL Mild Pain/Temp > 100.5 10/03/18 23:45 11/02/18 23:44 10/03/18 23:44 Chlorhexidine Gluconate (Vreo-Hex 2%) 1 applic DAILY@2000 TOPIC 10/06/18 20:00 11/05/18 19:59 10/10/18 20:48 Dextrose (Dextrose 50%) 25 ml Q30M PRN IV Hypoglycemia 10/01/18 22:45 10/31/18 22:44 Dextrose (Dextrose 50%) 50 ml Q30M PRN IV Hypoglycemia 10/01/18 22:45 10/31/18 22:44 Insulin Aspart (NovoLOG) BEFORE MEALS AND HS SUBQ 10/02/18 06:30 11/01/18 06:29 10/10/18 16:49 Metformin HCl (Glucophage) 500 mg TWICE A DAY ORAL 10/02/18 09:00 11/01/18 08:59 10/11/18 08:53 Piperacillin Sod/ Tazobactam Sod 3.375 gm/Sodium Chloride 110 ml @ 27.5 mls/hr Q8HR@0000,0800,1600 IVPB 10/04/18 16:00 10/11/18 15:59 10/11/18 01:01 Sodium Chloride 1,000 ml @ 75 mls/hr [id number] IV 10/04/18 08:30 11/03/18 08:29 10/11/18 01:02 Vancomycin HCl (Vanco rx to dose) 1 ea DAILY PRN MISC Per rx protocol 10/01/18 22:45 10/31/18 22:44 Vancomycin HCl 1 gm/Dextrose 275 ml @ 183.708 mls/hr Q8H IVPB 10/06/18 15:00 10/11/18 14:59 10/11/18 08:52 Sidney Kraft MD October 11, 2018 09:06
--- NOTE | 2018-10-11 10:50 | NUR ---
NURSE NOTES: THERE IS NO ZOSYN IN THE BIN YET, CALLED PHARMACY 2 TIMES, HAVEN'T SENT YET. WILL CONTINUE TO MONITOR.
--- NOTE | 2018-10-11 11:15 | NUR ---
*-* INSURANCE *-* UPDATED CLINICALS AND REVIEWS HAVE BEEN FAXED TO: N[facility]: NANCI P:[phone] *[id number] F: [phone] (FAX CLINICALS)
[2018-10-11 12:00] VITALS: BP 125/70
[2018-10-11 16:00] VITALS: BP 133/74
--- NOTE | 2018-10-11 17:05 | NUR ---
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
--- NOTE | 2018-10-11 17:20 | NUR ---
DISCHARGE PLANNING GOT AUTH. # FOR PATIENT TO BE SKILLED [id number] FOR [facility]
--- NOTE | 2018-10-11 18:05 | NUR ---
SALES EXPERT NOTES PT ACCEPTED TO [facility] RO[facility] 11 BED A. NURSE TO GIVE REPORT TO [phone].
[2018-10-11] MEDS ORDERED: ZOSYN 3.373.375 GM/1 IVPB (18:11)
[2018-10-11] MEDS ORDERED: VANCOMYCIN1 GM/2002 IV (18:13)
--- NOTE | 2018-10-11 19:24 | NUR ---
NURSE NOTES: Pt has discharge order. called Dr GIFFORD and verified order for zosyn and vanco and Dr GIFFORD also ordered to keep PICC and D/C IV access, noted and carried out. All discharge assessments and instructions done and pt verbally accepted to understand all. pt is stable. called SNF and given report to CSOOTER PALENCIA, she knows about zosyn and vanco and PICC and F/U with Dr ORELLANA. All belongings are with pt and he signed belongings paper. 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 Report given to SCOOTER BURGOS.
--- NOTE | 2018-10-11 19:41 | NUR ---
NURSE NOTES: Received patient in bed, patient is ambulating in the hallway, awaiting to be discharged to SNF, patient is in stable condition, VSS, afebrile, no acute distress noted, call light is within reach, bed is in low position, locked and alarm is on.
--- NOTE | 2018-10-11 20:31 | NUR ---
NURSE NOTES: Patient is discharged to [facility], patient is stable, report given to ambulance staff.
--- NOTE | 2018-10-12 13:21 | Discharge Summary ---
Discharge Summary Discharge Summary _ DATE OF ADMISSION: 10/01/2018 DATE OF DISCHARGE: 10/11/2018 DISCHARGED BY: Dr. Kraft REASON FOR ADMISSION: 47 years old male with past medical history of diabetes mellitus, left foot two toes amputation , presented to the hospital with pain and swelling of the right foot. Patient apparently did not take his medication for diabetes on a regular basis. Upon evaluation vital signs revealed tachycardia, no fevers. Laboratory work-up revealed mild leukocytosis, hemoglobin 8.7 , hematocrit 26.3. Stable electrolytes. BUN 25 , creatinine 1.0. Glucose 166. Lactic acid 1.5. Stable LFT. Albumin 2.3. Urinalysis revealed no evidence of UTI. Venous duplex bilateral lower extremity revealed no evidence of acute DVT. Patient admitted to using amphetamine. Patient subsequently was admitted for further management. CONSULTANTS: freelance programmer/app developer Dr. Berry [facility] COURSE: Patient admitted to medical surgical floor. Patient started on empiric IV antibiotics . Pain management and blood sugar management were addressed. Podiatry consult was requested. Electronic Warfare Technician seen and evaluated the patient and diagnosed him with clinical osteomyelitis of the right third toe. Patient subsequently undergone MRI of the right foot . Wound care provided as per freelance programmer/app developer recommendation. Right foot MRI revealed acute osteomyelitis, involving the head of the third metatarsal and phalanges. Moderate somewhat encapsulated appearing fluid, surrounding the third proximal phalange consistent with adjacent abscess. Cellulitis and ulceration noted . Patient subsequently undergone amputation of right third toe with biopsy of the third metatarsal head. Biopsy revealed evidence of acute gangrenous inflammation and necrosis. Acute osteomyelitis. Wound care subsequently further provided as per freelance programmer/app developer recommendation. Blood sugar was managed with metformin and sliding scale of insulin as needed. Diabetic diet provided. Patient was encouraged on compliance with anti-glycemic regimen as outpatient. PICC line was placed to complete antibiotic course as outpatient. Placement was arranged to the longterm facility. Patient was stable for transfer to [facility] for continuation of care, including IV antibiotics and wound care. FINAL DIAGNOSES: Diabetic foot ulcer with right third toe with osteomyelitis Cellulitis right third toe Osteomyelitis of third metatarsal head Status post amputation of right third toe with biopsy of the third metatarsal head Diabetes mellitus Homelessness DISCHARGE MEDICATIONS: See Medication Reconciliation list. DISCHARGE INSTRUCTIONS: Patient was discharged to the longterm facility. Follow up with medical doctor at the facility. I have been assigned to dictate discharge summary for this account. I was not involved in the patient's management. Gloria Linares NP Oct 12, 2018 13:21
== END 2018-10-11 20:30 | DRG 314 ==
LOC: EDBD 15:21 → EMR 17:41 → EDBEDREQ 19:32 → 4E 21:31
PROC: 0QBN0ZX Excision of Right Metatarsal, Open Approach, Diagnostic (ICD-10-PCS; principal; 2018-10-04 13:30)
PROC: 0Y6T0Z0 Detachment at Right 3rd Toe, Complete, Open Approach (ICD-10-PCS; principal; 2018-10-04 13:30)
PROC: B518ZZA Fluoroscopy of Superior Vena Cava, Guidance (ICD-10-PCS; 2018-10-09)
PROC: 02HV33Z Insertion of Infusion Device into Superior Vena Cava, Percutaneous Approach (ICD-10-PCS; 2018-10-09)
DX: L03.115 Cellulitis of right lower limb (principal); E11.40 Type 2 diabetes mellitus with diabetic neuropathy, unspecified; E11.621 Type 2 diabetes mellitus with foot ulcer; M86.171 Other acute osteomyelitis, right ankle and foot; E11.69 Type 2 diabetes mellitus with other specified complication; M86.8X8 Other osteomyelitis, other site; L97.519 Non-pressure chronic ulcer of other part of right foot with unspecified severity; L97.518 Non-pressure chronic ulcer of other part of right foot with other specified severity; Z59.0 Homelessness; F15.10 Other stimulant abuse, uncomplicated; Z89.422 Acquired absence of other left toe(s); M87.874 Other osteonecrosis, right foot
CPT/HCPCS: 36415; 36569; 76937; 80048; 80053; 80202; 81003; 82962; 83605; 85025; 85610; 85730; 87070; 87075; 87081; 87181; 87205; 93971; 94003; 94150; 96361; 96365; 96367; 99285; J1815; J2250